=== PATIENT | male | born 1930 | race Caucasian/White ===

== ENCOUNTER 2017-03-07 14:19 | Inpatient (IN) | payer OTHER ==
[~2017-03-07] VITALS: Ht 167.6 cm; Wt 64.0 kg
[~2017-03-07 14:19] MED LIST: ASPI-1063 PO; BIMA2.5D5 OP; BISA-79 PO; DILT120C89 PO; LIP20 PO; PILO15DR35 OP; PROP10TA10 PO; PSYL3.4P6 PO; SIMV40TA2 PO; TIMO5DRO16 OP; [UNRECOGNIZED DRUG - OTHER] OP
[2017-03-07 14:43] VITALS: BP 109/81; PULSE 74; RESP 17; TEMP 97.6; O2SAT 95
--- NOTE | 2017-03-07 14:50 | NUR ---
Pt presents with constipation and abd pain 5/10. Abd is soft and distended. Pt reports taking 2 enemas at home with one sm bowel movement last night. Denies taking pain medication or iron regularly. reports eating his usual high fiber breakfast today with no decreased/loss of appetite. Bowel sounds x4 hypoactive. hx of SBO sx x2. pt reports inability to pass gas. pt is burping. No acute distress.
--- NOTE | 2017-03-07 14:50 | NUR ---
ER at bedside examining patient.
[2017-03-07] MEDS ORDERED: NACL 0.9% 1,000 ML IV ONE (15:00)
[2017-03-07 15:25] LABS: BASOPHILS % (AUTO) 0.2 % (0.0-2.0); EOSINOPHILS # (AUTO) 0.2 K/uL (0.0-0.4); EOSINOPHILS % (AUTO) 2.3 % (0.0-4.0); HEMATOCRIT 39.3 % (36-54); LYMPHOCYTES # (AUTO) 0.5 K/uL (1.0-5.5); LYMPHOCYTES % (AUTO) 7.3 % (20.5-51.5); MEAN CORPUSCULAR HEMOGLOBIN 30 pg (27-31); MEAN CORPUSCULAR HGB CONC 33 % (32-36); MEAN CORPUSCULAR VOLUME 90 fL (79.0-98.0); MONOCYTES # (AUTO) 0.4 K/uL (0.0-1.0); MONOCYTES % (AUTO) 5.5 % (1.7-9.3); NEUTROPHILS # (AUTO) 5.9 K/uL (1.8-7.7); NEUTROPHILS % (AUTO) 84.7 % (40.0-70.0); PLATELET COUNT (AUTO) 201 K/uL (130-430); RED BLOOD CELL COUNT(AUTO) 4.39 MIL/uL (4.2-6.2); RED CELL DISTRIBUTION WIDTH 13.8 % (9.0-15.0)
[2017-03-07 15:28] LABS: ANION GAP 5 (5-15); CALCIUM 8.5 mg/dL (8.4-11.0); CHLORIDE 105 mmol/L (98-107); CREATININE 1.36 mg/dL (0.55-1.30); GLUCOSE 145 mg/dL (70-99); POTASSIUM 4.1 mmol/L (3.5-5.1); SODIUM SERUM 136 mmol/L (136-145); UREA NITROGEN, BLOOD 27 mg/dL (8-21)
[2017-03-07 15:33] LABS: ALANINE AMINOTRANSFERASE 61 U/L (12-78); ALBUMIN 3.3 g/dL (3.4-4.8); AMYLASE 59 U/L (0-100); ASPARTATE AMINOTRANSFERASE 33 U/L (10-37); LIPASE 176 U/L (73-393); TOTAL BILIRUBIN 0.6 mg/dL (0.0-1.0); TOTAL PROTEIN, SERUM 6.8 g/dL (6.4-8.3)
--- NOTE | 2017-03-07 16:07 | NUR ---
Medication reconciliation completed with information provided by patient. Any prior medication reconciliation on file was reviewed and corrected.
[2017-03-07] MEDS ORDERED: ONDANSETRON HCL 4 MG/2 ML VIAL IVP PRN (16:15)
--- NOTE | 2017-03-07 16:38 | NUR ---
Patient will be admitted to care of . Admitted to Med surg unit. Will go to room 109a. Belongings list completed. Summary report printed. Report given to Laura OKEEFE.
--- NOTE | 2017-03-07 16:47 | NUR ---
ADMISSION NOTE Received patient from ER via gurney. Patient admitted with diagnosis of Small Bowel Obstruction . Patient is awake, alert, oriented X 4. Patient oriented to hospital room, call light, toileting, pain management and safety-teach back done. Patient informed that Laura will be RN nurse and that their room number is 109A. Personal belongings checked and Belongings List documented. Call light within reach.
[2017-03-07 16:51] VITALS: BP 154/68; PULSE 67; RESP 18; TEMP 97.7; O2SAT 96
[2017-03-07] MEDS: D5/0.45 NS 1,000 ML IV SCH (17:07)
[2017-03-07] MEDS: MORPHINE 2 MG/ML INJ. SYRINGE IVP PRN (17:08)
[2017-03-07] MEDS ORDERED: GASTROGRAFIN 120 ML ONE (18:04)
--- NOTE | 2017-03-07 18:30 | NUR ---
CLOSING NOTE: PATIENT IS RESTING COMFORTABLY IN BED. NO S/S OF DISTRESS OR SOB. PATIENT IS ALERT AND ORIENTED, ABLE TO EXPRESS NEEDS, AND ASK FOR ASSISTANCE. NG TUBE WAS PLACED. SMALL BOWEL FOLLOW THROUGH WAS STARTED. CALL LIGHT IN REACH, BED IN LOWEST POSITION, AND WILL GIVE REPORT TO NIGHT NURSE.
[2017-03-07 19:45] VITALS: BP 125/65; PULSE 72; RESP 20; TEMP 98; O2SAT 96
[2017-03-07] MEDS: METOCLOPRAMIDE HCL 10 MG/2 ML VIAL IVP PRN (20:16)
--- NOTE | 2017-03-07 20:30 | NUR ---
Initial note and MD rounds A/O x 3, no SOB, no chest pain, denied pain at this time. C/o Nauseated and vomiting x 1, brown vomitus noted on the chux. Partial bed bath given, linen changed. aware of increased N/V and gave order of Regland and Zofran PRN. NGT in place through R nares. Skin warm to touch, IV at L FA, patent and free of infection or infiltration. One open wound at mid ABD, red/pink wound bed, scant red/brown drainage on old gauze. Soft but distended ABD with active bowel sounds. +2 radial and pedal pulses. No edema noted. Bed at lowest position, bed alarm on, call light within reach, will continue to monitor patient.
--- NOTE | 2017-03-07 20:32 | NUR ---
Consultation Paged Reason for consultation: Small Bowel Obstruction Was consult called: Yes Person who was notified: Jana (exchange) Consulting Physician: Kendall Paiz; Patricio Jara is on-call Exchange also notified Dr Sanches regarding consult Circulation Analyst Specialty: Bicycle Assembler Ordered by:
[2017-03-07] MEDS: ONDANSETRON HCL 4 MG/2 ML VIAL IVP PRN (21:40)
[2017-03-07] MEDS ORDERED: LIP20 PO (21:59)
[2017-03-07] MEDS ORDERED: DORZ10DR10 OP (21:59)
--- NOTE | 2017-03-07 22:00 | NUR ---
Rounds Patient resting in bed. No SOB, no chest pain, denied pain at this time. Still nauseated after Reglan and Zofran given. NGT in place through R nares. IV at L FA, patent and free of infection or infiltration. One open wound at mid ABD, covered by gauze/tape. Soft but distended ABD with active bowel sounds. Patient/family is aware that next SBFT will be around 2230, needed to keep patient NPO and no nasal suction at this time. Bed at lowest position, bed alarm on, call light within reach, will continue to monitor patient.
--- NOTE | 2017-03-07 23:15 | NUR ---
Vomiting x 2 Per , patient vomiting about 150 ml brown around 2214, she dumped it without informing SN. Before SBFT, patient vomited again, about 200 ml brown vomitus. Patient/family aware that Reglan and Zofran were given and needed to wait until further result before start nasal suction. Partial bed bath given, changed linen.
[2017-03-08] VITALS: BP 135/66; PULSE 91; RESP 16; TEMP 98.2; O2SAT 95
--- NOTE | 2017-03-08 00:15 | NUR ---
Rounds Resting in bed. No SOB, no chest pain, no grimacing. NGT in place through R nares. IV at L FA, patent and free of infection or infiltration. Bed at lowest position, bed alarm on, call light within reach, will continue to monitor patient.
--- NOTE | 2017-03-08 02:05 | NUR ---
Rounds and Vomiting x 1 Resting in bed. Vomiting x 1 about 100 ml brown/green vomitus. No SOB, no chest pain, denied pain. NGT in place through R nares. Spoke to [facility] (radiology department) that they will do another picture/SBFT around 0700 and may start nasal suction due to patient vomiting couple times already. IV at L FA, patent and free of infection or infiltration. Bed at lowest position, bed alarm on, call light within reach, will continue to monitor patient.
[2017-03-08] MEDS: METOCLOPRAMIDE HCL 10 MG/2 ML VIAL IVP PRN ×2 (02:35→08:15)
[2017-03-08] MEDS: D5/0.45 NS 1,000 ML IV SCH ×2 (02:39→13:05)
[2017-03-08 04:00] VITALS: BP 152/76; PULSE 106; RESP 16; TEMP 98.4; O2SAT 92
--- NOTE | 2017-03-08 04:05 | NUR ---
Rounds Resting/sleeping in bed. No Vomiting after Reglan given. No SOB, no chest pain, no grimacing. NGT in place through R nares. NGT suction connected to patient, but setting is off. In the past 2 hours, about 200 ml suctioned. IV at L FA, patent and free of infection or infiltration. Bed at lowest position, bed alarm on, call light within reach, will continue to monitor patient.
[2017-03-08] MEDS: ONDANSETRON HCL 4 MG/2 ML VIAL IVP PRN (05:49)
--- NOTE | 2017-03-08 06:00 | NUR ---
Rounds Resting in bed. C/o nauseated, Zofran given. No SOB, no chest pain, c/o mild pain at ABD 3/10, refused pain medication. NGT in place through R nares. NGT suction connected to patient with setting low suction. IV at L FA, patent and free of infection or infiltration. Bed at lowest position, bed alarm on, call light within reach, will continue to monitor patient.
--- NOTE | 2017-03-08 06:58 | NUR ---
Closing note Resting in bed. No SOB, no chest pain, no grimacing. NGT in place through R nares. NGT suction connected to patient and setting is off. Total 400 ml by nasal suction. IV at L FA, patent and free of infection or infiltration. Bed at lowest position, bed alarm on, call light within reach, will give report to incoming nurse for patient condition and follow up for BP, DVT, and wound care.
--- NOTE | 2017-03-08 07:38 | NUR ---
PATIENT IS AT REST, A/OX4, BUT C/O NAUSEA. NPO AT THIS TIME. IV ON LEFT FA, #20, D5 1/2 NS 100ML/HR. NG TUBE IS IN PLACE. CALL LIGHT IN PLACE, BED AT LOWEST POSITION, WILL CONTINUE TO MONITOR CLOSELY.
[2017-03-08] MEDS ORDERED: hydrALAZINE HCL 20 MG/ML VIAL IVP PRN (08:15)
[2017-03-08] MEDS: PANTOPRAZOLE SODIUM 40 MG/VIAL (PROTONIX) IVP SCH (08:26)
[2017-03-08] MEDS: HEPARIN SODIUM,PORCINE 5000 UNITS/ML VIAL SUBCUT SCH ×2 (08:28→21:50)
[2017-03-08 08:49] LABS: BASOPHILS # (AUTO) 0.1 K/uL (0.0-0.2); BASOPHILS % (AUTO) 0.7 % (0.0-2.0); EOSINOPHILS % (AUTO) 0.3 % (0.0-4.0); HEMATOCRIT 44.3 % (36-54); HEMOGLOBIN 14.4 g/dL (14.0-18.0); LYMPHOCYTES # (AUTO) 0.7 K/uL (1.0-5.5); LYMPHOCYTES % (AUTO) 7.9 % (20.5-51.5); MEAN CORPUSCULAR HEMOGLOBIN 29 pg (27-31); MEAN CORPUSCULAR HGB CONC 33 % (32-36); MEAN CORPUSCULAR VOLUME 90 fL (79.0-98.0); MONOCYTES # (AUTO) 0.9 K/uL (0.0-1.0); MONOCYTES % (AUTO) 10.5 % (1.7-9.3); NEUTROPHILS # (AUTO) 6.8 K/uL (1.8-7.7); NEUTROPHILS % (AUTO) 80.6 % (40.0-70.0); PLATELET COUNT (AUTO) 210 K/uL (130-430); RED BLOOD CELL COUNT(AUTO) 4.93 MIL/uL (4.2-6.2); WHITE BLOOD COUNT (AUTO) 8.5 K/uL (4.8-10.8)
[2017-03-08 08:55] LABS: ANION GAP 8 (5-15); CALCIUM 9.2 mg/dL (8.4-11.0); CHLORIDE 104 mmol/L (98-107); CREATININE 1.61 mg/dL (0.55-1.30); GLUCOSE 165 mg/dL (70-99); PHOSPHORUS 3.4 mg/dL (2.7-4.5); POTASSIUM 3.7 mmol/L (3.5-5.1); SODIUM SERUM 139 mmol/L (136-145); UREA NITROGEN, BLOOD 24 mg/dL (8-21)
[2017-03-08] MEDS: SODIUM CHLORIDE 5% OP SCH ×3 (09:00→21:00)
[2017-03-08] MEDS: [UNRECOGNIZED DRUG - OTHER] OP SCH ×3 (09:00→21:00)
[2017-03-08] MEDS: DORZOLAMIDE HCL/TIMOLOL MAL. 10 ML EYE DROPS (COSOPT) OP SCH ×2 (09:00→21:00)
[2017-03-08] MEDS: PILOCARPINE 1% OPHTHALMIC DROPS (ISOPTO CARPINE) OP SCH ×3 (09:00→21:00)
--- NOTE | 2017-03-08 10:00 | NUR ---
PATIENT IS RESTING, INTERMITTENT SUCTION OF NG TUBE MAINTAINED.
[2017-03-08] MEDS: PIPERACILLIN/TAZO 3.375/DEX-IS 50 ML IV SCH ×4 (10:05→23:40)
[2017-03-08 12:00] VITALS: BP 124/61; PULSE 82; RESP 16; TEMP 97; O2SAT 92
--- NOTE | 2017-03-08 12:20 | NUR ---
PATIENT AT REST, NO SIGNS OF DISTRESS NOTED.
[2017-03-08] MEDS: DILTIAZEM HCL 120 MG CAP.SR.24H PO SCH (13:03)
[2017-03-08] MEDS: PROPRANOLOL HCL 10 MG TABLET (INDERAL) PO SCH (13:03)
[2017-03-08] MEDS: ASPIRIN 81 MG TABLET(ECOTRIN) PO SCH (13:04)
--- NOTE | 2017-03-08 14:50 | NUR ---
DR. TYLER IS WITH PATIENT'S FAMILY MEMBER TO DISCUSS THE TREATMENT PLAN.
--- NOTE | 2017-03-08 16:25 | NUR ---
DR. ROCKWELL ASSESSED PATIENT, DISCUSSED WITH PATIENT'S FAMILY ABOUT PATIENT'S CLINICAL STATUS
[2017-03-08 18:08] VITALS: BP 139/88; PULSE 89; RESP 18; TEMP 98.9; O2SAT 94
--- NOTE | 2017-03-08 18:20 | NUR ---
IV RESTARTED ON LEFT AC,#20, INTACT AND PATENT. NO SIGNS OF DISTRESS NOTED.
[2017-03-08 19:55] VITALS: BP 143/70; PULSE 97; RESP 20; TEMP 97.6; O2SAT 96
--- NOTE | 2017-03-08 20:00 | NUR ---
NOTES; SEEN PT IN BED, RESTING. EASILY AROUSED. ORIENTED TO NAME, PLACE TIME, AND SURROUNDING. NO ACUTE DISTRESS NOTED. VITAL SIGNS STABLE, AFEBRILE. ABDOMEN SOFT NONDISTENDED WITH HYPERACTIVE BOWEL SOUNDS. SMALL WOUND TO THE ABD WITH DRESSING CLEAN, DRY, AND INTACT. NG-TUBE TO RT NARE, TO LOW INTERMITTENT SUCTIONING. NG-TUBE DRAINING GREEN GASTRIC SECRETION. PT DID NOT VOID FOR URIN CULTURE SPECIMEN. PER MD ORDER, WILL INSERT COOK CATHETER AFTER VOID. DENIES ANY PAIN AT THIS TIME. INSTRUCTED PT ON THE USE OF CALL LIGHT. PT DEMONSTRATED UNDERSTANDING. BED LOCKED AND IN LOW POSITION, SIDE RAILS UP X3. CALL LIGHT WITHIN REACH. FAMILY AT BEDSIDE WITH GOOD SUPPORT.
[2017-03-08] MEDS ORDERED: BIMATOPROST 0.01%, 2.5 ML EYE DROPS OP SCH (21:00)
[2017-03-08] MEDS: ATORVASTATIN 20 MG TABLET PO SCH (21:00)
--- NOTE | 2017-03-08 21:00 | NUR ---
NOTES; BED BATH GIVEN, LINEN CHANGED. DENIES ANY NAUSEA,VOMITING OR PAIN. SAFETY MEASURES IN PROGRESS. SON AT BEDSIDE WITH GOOD SUPPORT.
[2017-03-08] MEDS: LATANOPROST 2.5 ML DROPS (XALATAN) OP SCH (21:48)
--- NOTE | 2017-03-08 22:13 | NUR ---
NOTES; PT ONLY TOOK XALATAN EYE DROPS. PT REFUSED THE REST OF THE SCHEDULED EYE DROPS. PT STATED" MY ALREADY GAVE ME ALL MY EYE DROPS EXCEPT XALATAN SO I WILL NOT TAKE THE REST OF THE EYE DROPS EXCEPT XALATAN" INFORMED PT NO TO TAKE MEDS FROM HOME WITHOUT DOCTORS APPROVAL. PT VERBALIZED UNDERSTANDING. CHARGE NURSE NOTIFIED..
--- NOTE | 2017-03-09 | NUR ---
NOTES; PT VOIDED, URINE SAMPLE COLLECTED. INDWELLING COOK CATHETER INSERTED WITH 175 URINE OUT PUT NOTED IN BAG. WILL LEAVE CATHETER PER MD ORDER IF URINE OUT PUT IS GREATER THAN 150. WILL CONTINUE TO MONITOR.
[2017-03-09 00:12] VITALS: BP 123/70; PULSE 81; RESP 16; TEMP 98.6; O2SAT 96
--- NOTE | 2017-03-09 02:00 | NUR ---
NOTES; PT APPEARED TO BE SLEEPING, EYES CLOSED. RESPIRATION EVEN AND UNLABORED. NO ACUTE DISTRESS NOTED. FAMILY AT BEDSIDE WITH GOOD SUPPORT. SAFETY MEASURES IN PROGRESS.
[2017-03-09] MEDS: D5/0.45 NS 1,000 ML IV SCH (02:31)
[2017-03-09 03:09] LABS: BILIRUBIN,URINE NEGATIVE (NEGATIVE); CLARITY/URINE CLEAR (CLEAR); COLOR,URINE YELLOW (YELLOW); GLUCOSE,URINE NEGATIVE (NEGATIVE); KETONES,URINE TRACE (NEGATIVE); LEUKOCYTE ESTERASE ,URINE NEGATIVE (NEGATIVE); NITRITE, URINE NEGATIVE (NEGATIVE); PROTEIN URINE 1+ (NEGATIVE); UROBILINOGEN,URINE 0.2 (0.2-1.0)
[2017-03-09 03:33] LABS: BLOOD, URINE TRACE (NEGATIVE)
[2017-03-09 03:55] LABS: BACTERIA,URINE RARE /HPF (None Seen); FINE GRANULAR CASTS,URINE 0-10 /LPF (None Seen); URINE AMORPHOUS URATE 1+ /HPF (None Seen); WBC,URINE 0-3 /HPF (0-3)
[2017-03-09] MEDS: ONDANSETRON HCL 4 MG/2 ML VIAL IVP PRN (04:01)
--- NOTE | 2017-03-09 04:14 | NUR ---
NOTES; ZOFRAN 4MG IV ADMINISTERED BY RN COVERING FOR NAUSEA. PT TOLERATED MEDS WELL.
--- NOTE | 2017-03-09 04:35 | NUR ---
NOTES; PT STATED EFFECTIVE NAUSEA MEDICATION, AND RELIEF. WILL CONTINUE TO MONITOR.
[2017-03-09 05:07] VITALS: BP 112/78; PULSE 65; RESP 18; TEMP 97.9; O2SAT 96
--- NOTE | 2017-03-09 05:45 | NUR ---
Paged paged for , dialed . s/w Kaycee. Dr Villegas is on-call for .
[2017-03-09] MEDS: PIPERACILLIN/TAZO 3.375/DEX-IS 50 ML IV SCH ×3 (05:48→17:47)
--- NOTE | 2017-03-09 05:56 | NUR ---
NOTES; DR. GOLD AUTO BUMPER MECHANIC FOR [facility] CALLED BACK. INFORMED MD THAT PT HAS NO URINE OUT PUT AFTER THE INITIAL OUTPUT. NEW ORDER OF NS 250ML BOLUS NOW AND LEAVE COOK CATHETER IN . MD WILL SEE PT THIS MORNING. CHARGE NURSE AND RN COVERING NOTIFIED.
[2017-03-09] MEDS ORDERED: NS 250 ML IV ONE (06:00)
--- NOTE | 2017-03-09 06:14 | NUR ---
NOTES; BLADDER SCANNER USED AND FOUND TO VOLUME OF 427. NS BOLUS ADMINISTERED PER MD ORDER AND INFUSING WELL. WILL CONTINUE TO MONITOR.
--- NOTE | 2017-03-09 06:49 | NUR ---
NOTES; COOK CATHETER ADVANCED AND DRAINING AT THIS TIME. 250ML OUT PUT, URINE WITH A TINGE OF BLOOD. COOK CATHETER SECUREMENT IN PLACE. WILL CONTINUE TO MONITOR COOK CATHETER AND NG-TUBE OUT PUT.
[2017-03-09 07:21] LABS: HEMATOCRIT 38.6 % (36-54); HEMOGLOBIN 12.9 g/dL (14.0-18.0); MEAN CORPUSCULAR HEMOGLOBIN 30 pg (27-31); MEAN CORPUSCULAR HGB CONC 33 % (32-36); MEAN CORPUSCULAR VOLUME 89 fL (79.0-98.0); PLATELET COUNT (AUTO) 176 K/uL (130-430); RED BLOOD CELL COUNT(AUTO) 4.34 MIL/uL (4.2-6.2); RED CELL DISTRIBUTION WIDTH 13.9 % (9.0-15.0); WHITE BLOOD COUNT (AUTO) 4.6 K/uL (4.8-10.8)
--- NOTE | 2017-03-09 07:30 | NUR ---
Initial notes: pt on bed awake, alert and oriented. NGT tube with suction in placed. I.V. access patent. lozada cath draining 25cc with blood in urine. Discussed plan of care. Call light within reach. Report received at bedside.
[2017-03-09 07:33] LABS: ANION GAP 8 (5-15); CALCIUM 8.5 mg/dL (8.4-11.0); CHLORIDE 101 mmol/L (98-107); CREATININE 1.83 mg/dL (0.55-1.30); GLUCOSE 118 mg/dL (70-99); POTASSIUM 3.5 mmol/L (3.5-5.1); SODIUM SERUM 138 mmol/L (136-145); UREA NITROGEN, BLOOD 32 mg/dL (8-21)
[2017-03-09 08:00] VITALS: BP 112/60; PULSE 88; RESP 14; TEMP 96.9; O2SAT 93
[2017-03-09] MEDS: PANTOPRAZOLE SODIUM 40 MG/VIAL (PROTONIX) IVP SCH (08:23)
[2017-03-09] MEDS: DORZOLAMIDE HCL/TIMOLOL MAL. 10 ML EYE DROPS (COSOPT) OP SCH ×2 (08:26→22:20)
[2017-03-09] MEDS: [UNRECOGNIZED DRUG - OTHER] OP SCH ×3 (08:26→21:00)
[2017-03-09] MEDS: SODIUM CHLORIDE 5% OP SCH ×3 (08:26→21:00)
[2017-03-09] MEDS: PILOCARPINE 1% OPHTHALMIC DROPS (ISOPTO CARPINE) OP SCH ×3 (08:32→22:20)
[2017-03-09] MEDS: HEPARIN SODIUM,PORCINE 5000 UNITS/ML VIAL SUBCUT SCH ×2 (08:37→22:16)
[2017-03-09] MEDS: DILTIAZEM HCL 120 MG CAP.SR.24H PO SCH (09:00)
[2017-03-09] MEDS: PROPRANOLOL HCL 10 MG TABLET (INDERAL) PO SCH (09:00)
[2017-03-09] MEDS: ASPIRIN 81 MG TABLET(ECOTRIN) PO SCH (09:00)
[2017-03-09 11:38] LABS: ATYPICAL LYMPHOCYTES % 3 % (0-0); BAND % (MANUAL) 44 % (0-6); BASOPHILS % (MANUAL) 0 % (0-2); EOSINOPHILS % (MANUAL) 2 % (0-7); LYMPHOCYTES % (MANUAL) 18 % (20-46); MONOCYTES % (MANUAL) 11 % (0-11)
--- NOTE | 2017-03-09 11:58 | NUR ---
Wound dressing: abdominal wound dressing changed. wound healing well. no redness.
[2017-03-09 12:49] VITALS: BP 117/60; PULSE 76; RESP 16; TEMP 97.6; O2SAT 95
--- NOTE | 2017-03-09 15:30 | NUR ---
CXR and lab test: CXR and lab test done. result pending.
--- NOTE | 2017-03-09 16:00 | NUR ---
rounds: pt sleeping. no distress noted.
--- NOTE | 2017-03-09 16:53 | NUR ---
rounds: pt resting . no distress noted. daughter at bedside.
[2017-03-09] MEDS: KCL 10 mEq in D5/0.45NS 1000mL 1,000 ML IV SCH (16:59)
[2017-03-09 17:18] VITALS: BP 122/57; PULSE 76; RESP 16; TEMP 98; O2SAT 95
--- NOTE | 2017-03-09 18:45 | NUR ---
closing notes: pt on bed sleeping. no distress noted. needs attended. at bedside. call light within reach. report will be given to manager night nurse.
[2017-03-09 20:10] VITALS: BP 124/54; PULSE 73; RESP 16; TEMP 98; O2SAT 94
[2017-03-09] MEDS: ATORVASTATIN 20 MG TABLET PO SCH (22:14)
[2017-03-09] MEDS: LATANOPROST 2.5 ML DROPS (XALATAN) OP SCH (22:20)
--- NOTE | 2017-03-10 00:43 | NUR ---
ROUNDS PATIENT IS SLEEPING COMFORTABLY WITH VISIBLE RISE AND FALL OF CHEST NOTED. NO SIGNS OR SYMPTOMS OF ACUTE DISTRESS NOTED. IV PATENT AND INFUSING. NG TUBE ON INTERMITTENT SUCTION. BED IN LOWEST POSITION, BED ALARM ON, CALL LIGHT WITHIN REACH. WILL CONTINUE TO MONITOR.
[2017-03-10] MEDS: PIPERACILLIN/TAZO 3.375/DEX-IS 50 ML IV SCH ×5 (00:53→23:36)
[2017-03-10 01:33] VITALS: BP 137/65; PULSE 77; RESP 19; TEMP 98.5; O2SAT 96
[2017-03-10] MEDS: KCL 10 mEq in D5/0.45NS 1000mL 1,000 ML IV SCH ×4 (01:40→22:41)
--- NOTE | 2017-03-10 03:42 | NUR ---
ROUNDS PATIENT IS SLEEPING COMFORTABLY WITH VISIBLE RISE AND FALL OF CHEST NOTED. NO SIGNS OR SYMPTOMS OF ACUTE DISTRESS NOTED. IV PATENT AND INFUSING. BED IN LOWEST POSITION, BED ALARM ON, CALL LIGHT WITHIN REACH. WILL CONTINUE TO MONITOR.
[2017-03-10 04:00] VITALS: BP 143/72; PULSE 72; RESP 18; TEMP 98.6; O2SAT 97
--- NOTE | 2017-03-10 05:38 | NUR ---
ROUNDS PATIENT IS AWAKE AND ALERT COMPLAINING OF A SORE THROAT, WILL ENDORSE TO DAYSHIFT NURSE. PATIENT SHOWS NO S/S OF DISTRESS. BED IN LOWEST POSITION, BED ALARM ON, CALL LIGHT WITHIN REACH.
[2017-03-10 07:39] LABS: BASOPHILS % (AUTO) 0.6 % (0.0-2.0); EOSINOPHILS # (AUTO) 0.4 K/uL (0.0-0.4); HEMATOCRIT 34.4 % (36-54); HEMOGLOBIN 11.9 g/dL (14.0-18.0); LYMPHOCYTES # (AUTO) 0.7 K/uL (1.0-5.5); MEAN CORPUSCULAR HEMOGLOBIN 31 pg (27-31); MEAN CORPUSCULAR HGB CONC 35 % (32-36); MEAN CORPUSCULAR VOLUME 89 fL (79.0-98.0); MONOCYTES # (AUTO) 0.5 K/uL (0.0-1.0); MONOCYTES % (AUTO) 10.9 % (1.7-9.3); NEUTROPHILS # (AUTO) 2.6 K/uL (1.8-7.7); NEUTROPHILS % (AUTO) 63.5 % (40.0-70.0); PLATELET COUNT (AUTO) 139 K/uL (130-430); RED BLOOD CELL COUNT(AUTO) 3.88 MIL/uL (4.2-6.2); RED CELL DISTRIBUTION WIDTH 13.8 % (9.0-15.0); WHITE BLOOD COUNT (AUTO) 4.2 K/uL (4.8-10.8)
--- NOTE | 2017-03-10 07:55 | NUR ---
CLOSING NOTES REPORT GIVEN AT BEDSIDE WITH AT BEDSIDE. PATIENT IS SITTING UP, RESTING COMFORTABLY, DENIES PAIN OR NAUSEA. NO SIGNS OR SYMPTOMS OF ACUTE DISTRESS NOTED. IV PATENT AND INFUSING. NG TUBE ON INTERMITTENT SUCTION. BED IN LOWEST POSITION, BED ALARM ON, CALL LIGHT WITHIN REACH.
--- NOTE | 2017-03-10 08:00 | NUR ---
OPENING NOTES PT RESTING IN BED, FAMILY AT BEDSIDE. 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
[2017-03-10 08:15] LABS: ALANINE AMINOTRANSFERASE 30 U/L (12-78); ALBUMIN 2.4 g/dL (3.4-4.8); ANION GAP 6 (5-15); ASPARTATE AMINOTRANSFERASE 17 U/L (10-37); CALCIUM 8.2 mg/dL (8.4-11.0); CHLORIDE 102 mmol/L (98-107); CREATININE 1.46 mg/dL (0.55-1.30); GLUCOSE 124 mg/dL (70-99); POTASSIUM 3.4 mmol/L (3.5-5.1); SODIUM SERUM 136 mmol/L (136-145); TOTAL BILIRUBIN 0.7 mg/dL (0.0-1.0); UREA NITROGEN, BLOOD 21 mg/dL (8-21)
[2017-03-10 08:41] VITALS: BP 137/72; PULSE 74; RESP 18; TEMP 98.2; O2SAT 96
[2017-03-10] MEDS: [UNRECOGNIZED DRUG - OTHER] OP SCH ×3 (09:00→20:56)
[2017-03-10] MEDS: SODIUM CHLORIDE 5% OP SCH ×3 (09:00→20:56)
--- NOTE | 2017-03-10 09:00 | NUR ---
BILLY BANDAGE APPLIED TO PT LEFT WRIST, PER HIS REQUEST. PT COMPLAINING OF CHRONIC PAIN RELATED TO A WRIST FRACTURE OVER 20 YEARS AGO. OFFERED PRN MEDICATION AND WILL MONITOR FOR S/S OF PAIN
--- NOTE | 2017-03-10 09:35 | NUR ---
Nutrition Update Ck Scale 13 noted. Pt admitted for SBO. Diet: NPO BMI: 22.6 kg/m2 RD to follow per nutrition care standards.
[2017-03-10] MEDS: MORPHINE 2 MG/ML INJ. SYRINGE IVP PRN (09:48)
[2017-03-10] MEDS: PANTOPRAZOLE SODIUM 40 MG/VIAL (PROTONIX) IVP SCH (09:54)
[2017-03-10] MEDS: HEPARIN SODIUM,PORCINE 5000 UNITS/ML VIAL SUBCUT SCH ×2 (09:56→21:03)
[2017-03-10] MEDS: ASPIRIN 81 MG TABLET(ECOTRIN) PO SCH (09:57)
[2017-03-10] MEDS: PROPRANOLOL HCL 10 MG TABLET (INDERAL) PO SCH (09:57)
[2017-03-10] MEDS: DILTIAZEM HCL 120 MG CAP.SR.24H PO SCH (09:57)
--- NOTE | 2017-03-10 10:00 | NUR ---
ROUNDS PT IN BED, SPEAKING TO HIS WHO IS AT BEDSIDE. PT STATED HE IS COMFORTABLE
[2017-03-10] MEDS: DORZOLAMIDE HCL/TIMOLOL MAL. 10 ML EYE DROPS (COSOPT) OP SCH ×2 (10:16→20:56)
[2017-03-10] MEDS: PILOCARPINE 1% OPHTHALMIC DROPS (ISOPTO CARPINE) OP SCH ×3 (10:17→20:56)
--- NOTE | 2017-03-10 11:01 | NUR ---
Called Dr Myron Argueta who was in surgery Informed him that per Dr Coe's progress noted, he, Dr Sanches will continue to follow this patient. He stated he will come see the patient later I asked if ok to administer meds PO and hold the suction for an hour or so. He stated ok to administer.
[2017-03-10] MEDS ORDERED: GASTROGRAFIN 120 ML ONE (11:57)
[2017-03-10] MEDS: ONDANSETRON HCL 4 MG/2 ML VIAL IVP PRN (11:59)
--- NOTE | 2017-03-10 12:10 | NUR ---
PT GIVEN GASTROGRAFIN CONTRAST FOR SMALL BOWEL FOLLOWTHROUGH, THROUGH NG TUBE. PULP BLEACHER AT BEDSIDE, DOING XRAYS
[2017-03-10 12:17] VITALS: BP 146/79; PULSE 60; RESP 16; TEMP 98.3; O2SAT 96
[2017-03-10 12:19] VITALS: Ht 167.6 cm; Wt 64.0 kg
--- NOTE | 2017-03-10 12:25 | NUR ---
Pt laying on the right side per tech's advice and they will take another xray in 30 minutes.
--- NOTE | 2017-03-10 13:27 | NUR ---
ROUNDS/PAIN FOLLOW-UP PT VS ARE STABLE BUT HIS LEFT WRIST IS VERY PAINFUL (10/10) DUE TO AN OLD INJURY. PT IS CONCERNED MORPHINE MAY CONTRAINDICATED DUE TO HIS BOWEL BLOCKAGE, SO I PAGED DR BUTT FOR FURTHER INSTRUCTION
[2017-03-10] MEDS ORDERED: KETOROLAC TROMETHAMINE 30 MG VIAL IVP PRN (13:45)
--- NOTE | 2017-03-10 14:05 | NUR ---
Heating pad initiated , placed on 30 minute intervals around the wrist.
--- NOTE | 2017-03-10 16:00 | NUR ---
ROUNDS PT STATED HE IS COMFORTABLE. STILL AT BEDSIDE
[2017-03-10 16:22] VITALS: BP 137/74; PULSE 79; RESP 16; TEMP 99.6; O2SAT 94
[2017-03-10] MEDS ORDERED: NA PHOS,M-B/NA PHOS,DI-BA 118 ML (FLEET ENEMA) RC ONE ×2 (17:00→18:00)
--- NOTE | 2017-03-10 18:00 | NUR ---
ROUNDS PT TOLD ME HE FEELS LIKE HE NEEDS TO HAVE A BOWEL MOVEMENT. UPON SITTING HIM UP TO ASSIST HIM TO THE BEDSIDE COMMODE, HE HAD A BM IN BED. CLEANED PT, CHANGED BEDDING, AND ASSISTED HIM TO A COMFORTABLE POSITION.
--- NOTE | 2017-03-10 19:00 | NUR ---
CLOSING NOTE PT RESTING IN BED, NO LONGER AT BEDSIDE. REPORT ENDORSED AT BEDSIDE TO MARY, EXPLAINING NG TUBE IS TO BE REMOVED AND PT IS TO RECEIVE 3 ENEMAS ORDERED.
[2017-03-10 20:04] VITALS: BP 113/56; PULSE 74; RESP 18; TEMP 98.9; O2SAT 94
--- NOTE | 2017-03-10 20:10 | NUR ---
Initial note A/O x 3, no SOB, no chest pain, denied pain. Skin warm to touch, IV at L FA, patent, free of infection or infiltration. NGT at R nares with low intermittent suction, light brown drainage in the canister. One small opening at ABD, free of infection, dressing clean and dry. F/C in place, about 50 ml clear yellow urine in the collecting bag. Assisted patient to BSC x 1, semi-liquid BM noted. Patient is aware of order to DC NGT and 2 fleet enema tonight. Bed at lowest position, call light within reach, will continue to monitor patient.
--- NOTE | 2017-03-10 20:30 | NUR ---
DC'd NGT, patient tolerated well
[2017-03-10] MEDS: LATANOPROST 2.5 ML DROPS (XALATAN) OP SCH (20:51)
[2017-03-10] MEDS: ATORVASTATIN 20 MG TABLET PO SCH (21:00)
--- NOTE | 2017-03-10 21:15 | NUR ---
Fleet enema given, patient tolerated well
--- NOTE | 2017-03-10 22:10 | NUR ---
Rounds A/O x 3, no SOB, no chest pain, denied pain. Skin warm to touch, IV at L FA, patent. F/C in place. Patient is aware of 2nd fleet enema will be given later. Bed at lowest position, call light within reach, will continue to monitor patient.
--- NOTE | 2017-03-10 22:40 | NUR ---
2nd Fleet enema given, patient tolerated well Patient requested to be on BSC after fleet enema given, semi-liquid BM noted, assisted patient back to bed, linen, sheet, gown changed.
[2017-03-11] VITALS: BP 114/62; PULSE 58; RESP 16; TEMP 98.7; O2SAT 94
--- NOTE | 2017-03-11 00:10 | NUR ---
Rounds Resting/sleeping in bed. No SOB, no chest pain, no grimacing. IV at L FA, patent. F/C in place. Bed at lowest position, call light within reach, will continue to monitor patient.
[2017-03-11 04:00] VITALS: BP 117/63; PULSE 62; RESP 16; TEMP 97.6; O2SAT 95
[2017-03-11] MEDS: PIPERACILLIN/TAZO 3.375/DEX-IS 50 ML IV SCH ×2 (05:46→12:35)
[2017-03-11] MEDS: KCL 10 mEq in D5/0.45NS 1000mL 1,000 ML IV SCH (06:12)
--- NOTE | 2017-03-11 06:25 | NUR ---
Closing note Sleeping in bed. No SOB, no chest pain, no grimacing. IV at L FA, patent. F/C in place. Bed at lowest position, call light within reach, will give report to incoming nurse.
[2017-03-11 07:19] LABS: BASOPHILS % (AUTO) 0.6 % (0.0-2.0); EOSINOPHILS # (AUTO) 0.2 K/uL (0.0-0.4); EOSINOPHILS % (AUTO) 4.5 % (0.0-4.0); HEMATOCRIT 34.8 % (36-54); HEMOGLOBIN 11.7 g/dL (14.0-18.0); LYMPHOCYTES # (AUTO) 0.7 K/uL (1.0-5.5); LYMPHOCYTES % (AUTO) 16.4 % (20.5-51.5); MEAN CORPUSCULAR HEMOGLOBIN 30 pg (27-31); MEAN CORPUSCULAR HGB CONC 34 % (32-36); MEAN CORPUSCULAR VOLUME 89 fL (79.0-98.0); MONOCYTES # (AUTO) 0.6 K/uL (0.0-1.0); NEUTROPHILS % (AUTO) 65.5 % (40.0-70.0); PLATELET COUNT (AUTO) 125 K/uL (130-430); RED BLOOD CELL COUNT(AUTO) 3.94 MIL/uL (4.2-6.2); RED CELL DISTRIBUTION WIDTH 13.6 % (9.0-15.0); WHITE BLOOD COUNT (AUTO) 4.5 K/uL (4.8-10.8)
[2017-03-11 07:39] LABS: ANION GAP 6 (5-15); CALCIUM 7.8 mg/dL (8.4-11.0); CHLORIDE 105 mmol/L (98-107); CREATININE 1.37 mg/dL (0.55-1.30); GLUCOSE 106 mg/dL (70-99); POTASSIUM 3.1 mmol/L (3.5-5.1); SODIUM SERUM 139 mmol/L (136-145); UREA NITROGEN, BLOOD 17 mg/dL (8-21)
[2017-03-11 08:00] VITALS: BP 133/72; PULSE 84; RESP 17; TEMP 97.3; O2SAT 96
--- NOTE | 2017-03-11 08:00 | NUR ---
opening note pt resting in bed, his is at bedside. vs stable and he said he is not in pain today. discussed d/c planning with patient and his .
[2017-03-11] MEDS ORDERED: NA PHOS,M-B/NA PHOS,DI-BA 118 ML (FLEET ENEMA) RC ONE (09:00)
[2017-03-11] MEDS: SODIUM CHLORIDE 5% OP SCH (09:00)
[2017-03-11] MEDS: [UNRECOGNIZED DRUG - OTHER] OP SCH (09:00)
[2017-03-11] MEDS ORDERED: POTASSIUM CHLORIDE 40 MEQ in 0.45% NS 250 ML IV ONE (10:00)
[2017-03-11] MEDS ORDERED: POTASSIUM CHLORIDE 20 MEQ TAB.PRT.SR PO ONE (10:00)
--- NOTE | 2017-03-11 10:00 | NUR ---
Dr zaid quiñones md notified of the patients potassium levels and also about the dc order from dr Sanches.
[2017-03-11] MEDS: PANTOPRAZOLE SODIUM 40 MG/VIAL (PROTONIX) IVP SCH (10:04)
[2017-03-11] MEDS: ASPIRIN 81 MG TABLET(ECOTRIN) PO SCH (10:05)
[2017-03-11] MEDS: PROPRANOLOL HCL 10 MG TABLET (INDERAL) PO SCH (10:05)
[2017-03-11] MEDS: DILTIAZEM HCL 120 MG CAP.SR.24H PO SCH (10:06)
[2017-03-11] MEDS: DORZOLAMIDE HCL/TIMOLOL MAL. 10 ML EYE DROPS (COSOPT) OP SCH (10:07)
[2017-03-11] MEDS: PILOCARPINE 1% OPHTHALMIC DROPS (ISOPTO CARPINE) OP SCH (10:08)
[2017-03-11] MEDS: HEPARIN SODIUM,PORCINE 5000 UNITS/ML VIAL SUBCUT SCH (10:09)
--- NOTE | 2017-03-11 10:17 | NUR ---
Faxed DC order Home to [phone] Filed fax confirmation in binder.
--- NOTE | 2017-03-11 10:42 | NUR ---
ROUNDS ELIZ COOK, PT AMBULATED TO BATHROOM WITH WALKER
--- NOTE | 2017-03-11 10:52 | NUR ---
enema given third and final enema administered as ordered
--- NOTE | 2017-03-11 12:10 | NUR ---
ROUNDS PT COMPLAINING OF PAIN FROM K+ INFUSION. LOWERED RATE TO TOLERANCE AND OFFERED AN ICE PACK FOR COMFORT. i WILL CHECK BACK IN WITH PT AND INCREASE INFUSION RATE IF TOLERATED
[2017-03-11 12:38] VITALS: BP 128/70; PULSE 54; RESP 12; TEMP 98.1; O2SAT 99
--- NOTE | 2017-03-11 14:00 | NUR ---
ROUNDS PT SLEEPING AND APPEARS COMFORTABLE, STILL AT BEDSIDE
--- NOTE | 2017-03-11 16:00 | NUR ---
ROUNDS IV POTASSIUM STILL INFUSING. PREPARING DISCHARGE SO THAT PT CAN LEAVE SOON INFUSION IS COMPLETE
[2017-03-11 16:38] VITALS: BP 119/67; PULSE 65; RESP 17; TEMP 98.8; O2SAT 97
--- NOTE | 2017-03-11 17:40 | NUR ---
Patient transported out via wheelchair [id number]. Mrs Hernandez to take patient home. Patient steady and stable, all needs met.
--- NOTE | 2017-03-12 15:47 | NUR ---
Discharge Follow Up Phone Call: STONE SANDBLASTER called and spoke with pt ([phone]). Pt states that he is doing well; there are no questions regarding discharge or medication instructions; pt will schedule a follow up appointment with PCP, Dr. Brown. STONE SANDBLASTER offered to assist pt with scheduling appointment, but pt states that he will schedule the appointment. Pt did not express any other needs or concerns and denied the need for additional follow up at this time. No further follow up phone calls required at this time.
== END 2017-03-11 17:30 | disposition home or self-care (01) | DRG 390 ==
LOC: SED 14:19 → SMU 16:08
PROVIDERS: ADMIT Internal Medicine; ATTEND Internal Medicine
DX: K56.7 Ileus, unspecified (principal); K56.60 Unspecified intestinal obstruction; I10 Essential (primary) hypertension; N28.9 Disorder of kidney and ureter, unspecified; E87.6 Hypokalemia; J45.909 Unspecified asthma, uncomplicated; J44.9 Chronic obstructive pulmonary disease, unspecified; I25.10 Atherosclerotic heart disease of native coronary artery without angina pectoris; Z95.5 Presence of coronary angioplasty implant and graft; Z88.6 Allergy status to analgesic agent; Z79.899 Other long term (current) drug therapy; Z79.82 Long term (current) use of aspirin; Z85.9 Personal history of malignant neoplasm, unspecified; Z86.73 Personal history of transient ischemic attack (TIA), and cerebral infarction without residual deficits
CPT/HCPCS: 36415; 71010; 74000-TC; 74250-TC; 80048; 80053; 81000-TC; 82150-TC; 83605; 83690-TC; 83735-TC; 84100-TC; 85007; 85025; 85027; 87040-TC; 87086; 96360; 97116-GP; 99285; C9113; J1644; J1885; J2270; J2405; J2543; J2765; J3480; J7030; J7050; Q9963

== ENCOUNTER 2017-05-30 18:07 | Inpatient (IN) | payer OTHER ==
[~2017-05-30] VITALS: Ht 170.2 cm; Wt 65.3 kg
[2017-05-30 18:07] VITALS: BP_SYST 157
[~2017-05-30 18:07] MED LIST changes: +DORZ10DR10 OP; -SIMV40TA2 PO; -TIMO5DRO16 OP
[2017-05-30] MEDS ORDERED: MORPHINE 4 MG/ML INJ. SYRINGE IVP ONE (18:30)
[2017-05-30] MEDS ORDERED: PIPERACILLIN/TAZO 3.38 GM in NS 50 ML IV ONE (18:30)
[2017-05-30] MEDS ORDERED: DIPHENHYDRAMINE INJ 50 MG/ML VIAL IVP ONE (18:30)
[2017-05-30] MEDS ORDERED: PIPERACILLIN/TAZOBACTAM 3.375 GM/VIAL (ZOSYN) IV ONE ×2 (18:45→22:52)
[2017-05-30 19:11] LABS: BASOPHILS # (AUTO) 0.1 K/uL (0.0-0.2); BASOPHILS % (AUTO) 1.6 % (0.0-2.0); EOSINOPHILS # (AUTO) 0.1 K/uL (0.0-0.4); EOSINOPHILS % (AUTO) 0.7 % (0.0-4.0); HEMATOCRIT 45.5 % (36-54); HEMOGLOBIN 14.7 g/dL (14.0-18.0); LYMPHOCYTES # (AUTO) 0.5 K/uL (1.0-5.5); LYMPHOCYTES % (AUTO) 6.6 % (20.5-51.5); MEAN CORPUSCULAR HEMOGLOBIN 29 pg (27-31); MEAN CORPUSCULAR HGB CONC 32 % (32-36); MEAN CORPUSCULAR VOLUME 89 fL (79.0-98.0); MONOCYTES # (AUTO) 0.3 K/uL (0.0-1.0); MONOCYTES % (AUTO) 3.4 % (1.7-9.3); NEUTROPHILS # (AUTO) 6.4 K/uL (1.8-7.7); NEUTROPHILS % (AUTO) 87.7 % (40.0-70.0); PLATELET COUNT (AUTO) 275 K/uL (130-430); RED BLOOD CELL COUNT(AUTO) 5.12 MIL/uL (4.2-6.2); RED CELL DISTRIBUTION WIDTH 13.9 % (9.0-15.0); WHITE BLOOD COUNT (AUTO) 7.4 K/uL (4.8-10.8)
[2017-05-30 19:22] LABS: INR 0.9 (0.80-1.20); PROTHROMBIN TIME 10.3 SECS (9.5-12.5)
[2017-05-30 19:26] LABS: ANION GAP 9 (5-15); CALCIUM 8.8 mg/dL (8.4-11.0); CHLORIDE 104 mmol/L (98-107); CREATININE 1.18 mg/dL (0.55-1.30); GLUCOSE 156 mg/dL (70-99); POTASSIUM 4.1 mmol/L (3.5-5.1); SODIUM SERUM 135 mmol/L (136-145); UREA NITROGEN, BLOOD 21 mg/dL (8-21)
[2017-05-30 19:31] LABS: ALANINE AMINOTRANSFERASE 38 U/L (12-78); ALBUMIN 3.6 g/dL (3.4-4.8); ASPARTATE AMINOTRANSFERASE 25 U/L (10-37); LIPASE 176 U/L (73-393); TOTAL BILIRUBIN 0.7 mg/dL (0.0-1.0); TOTAL PROTEIN, SERUM 7.6 g/dL (6.4-8.3)
[2017-05-30] MEDS ORDERED: ALBUTEROL SULFATE 0.083% 2.5 MG/3 ML VIAL.NEB INH ONE (20:00)
[2017-05-30] MEDS ORDERED: ALBUTEROL SULFATE 0.083% 2.5 MG/3 ML VIAL.NEB INH PRN (21:00)
[2017-05-30 22:00] VITALS: BP_SYST 113
[2017-05-30 22:14] VITALS: BP_SYST 113
[2017-05-30] MEDS: D5/0.45 NS 1,000 ML IV SCH (22:36)
[2017-05-30 23:00] VITALS: BP_SYST 114
[2017-05-30 23:20] VITALS: BP_SYST 114
[2017-05-30] MEDS: ONDANSETRON HCL 4 MG/2 ML VIAL IVP PRN (23:30)
[2017-05-30] MEDS: IPRATROPIUM BROM 0.5 MG/2.5 ML VIAL.NEB (ATROVENT) INH PRN (23:33)
[2017-05-30] MEDS ORDERED: PANTOPRAZOLE SODIUM 40 MG/VIAL (PROTONIX) IVP ONE (23:45)
[2017-05-30] MEDS ORDERED: PANTOPRAZOLE SODIUM 40 MG/VIAL (PROTONIX) ONE (23:52)
[2017-05-30 23:54] VITALS: BP_SYST 114
[2017-05-31] VITALS (24 sets, daily range): BP systolic 88–120
[2017-05-31] MEDS ORDERED: VANCOMYCIN HCL 1 GM/NS PREMIX 250 ML IV ONE
[2017-05-31] MEDS ORDERED: VANCOMYCIN HCL 1000 MG/VIAL IV ONE (00:06)
[2017-05-31 01:17] LABS: BILIRUBIN,URINE NEGATIVE (NEGATIVE); BLOOD, URINE NEGATIVE (NEGATIVE); CLARITY/URINE HAZY (CLEAR); COLOR,URINE AMBER (YELLOW); GLUCOSE,URINE NEGATIVE (NEGATIVE); KETONES,URINE NEGATIVE (NEGATIVE); LEUKOCYTE ESTERASE ,URINE NEGATIVE (NEGATIVE); NITRITE, URINE NEGATIVE (NEGATIVE); PROTEIN URINE 1+ (NEGATIVE); UROBILINOGEN,URINE 0.2 (0.2-1.0)
[2017-05-31 01:40] LABS: BACTERIA,URINE FEW /HPF (None Seen); HYALINE CASTS, URINE 0-10 /LPF (None Seen); MUCUS,URINE None Seen /LPF (None Seen); RBC,URINE NONE SEEN /HPF (0-3); WBC,URINE 0-3 /HPF (0-3)
[2017-05-31] MEDS: PIPERACILLIN/TAZO 3.375/DEX-IS 50 ML IV SCH ×4 (05:17→17:17)
[2017-05-31 06:42] LABS: LYMPHOCYTES # (AUTO) 0.6 K/uL (1.0-5.5); NEUTROPHILS # (AUTO) 5.1 K/uL (1.8-7.7); RED CELL DISTRIBUTION WIDTH 13.8 % (9.0-15.0)
[2017-05-31 06:55] LABS: ANION GAP 9 (5-15); CALCIUM 8.2 mg/dL (8.4-11.0); CHLORIDE 107 mmol/L (98-107); CREATININE 1.79 mg/dL (0.55-1.30); GLUCOSE 127 mg/dL (70-99); SODIUM SERUM 137 mmol/L (136-145); UREA NITROGEN, BLOOD 30 mg/dL (8-21)
[2017-05-31 07:05] LABS: BASOPHILS % (AUTO) 0.3 % (0.0-2.0); EOSINOPHILS % (AUTO) 0.1 % (0.0-4.0); HEMATOCRIT 36.9 % (36-54); HEMOGLOBIN 12.2 g/dL (14.0-18.0); LYMPHOCYTES % (AUTO) 9.6 % (20.5-51.5); MEAN CORPUSCULAR HEMOGLOBIN 30 pg (27-31); MEAN CORPUSCULAR HGB CONC 33 % (32-36); MEAN CORPUSCULAR VOLUME 90 fL (79.0-98.0); MONOCYTES # (AUTO) 0.3 K/uL (0.0-1.0); MONOCYTES % (AUTO) 5.3 % (1.7-9.3); NEUTROPHILS % (AUTO) 84.7 % (40.0-70.0); PLATELET COUNT (AUTO) 185 K/uL (130-430); RED BLOOD CELL COUNT(AUTO) 4.12 MIL/uL (4.2-6.2)
[2017-05-31 07:54] LABS: BLOOD GAS PH 7.416 (7.350-7.450)
[2017-05-31 07:55] LABS: ABG TOTAL HEMOGLOBIN 13.3 G/dL (12.0-18.0); BLOOD GAS BASE EXCESS -5.2 mmol/L (-3.0-3.0); BLOOD GAS COHb% 0.3 % (0.5-1.5); BLOOD GAS HHB 3.9 % (0.0-6.0); BLOOD O2Hb% 95.1 % (94.0-97.0)
[2017-05-31] MEDS: PANTOPRAZOLE SODIUM 40 MG/VIAL (PROTONIX) IVP SCH (09:08)
[2017-05-31] MEDS: ONDANSETRON HCL 4 MG/2 ML VIAL IVP PRN (09:09)
[2017-05-31] MEDS: D5/0.45 NS 1,000 ML IV SCH (15:22)
[2017-05-31] MEDS ORDERED: GASTROGRAFIN 120 ML ONE (16:03)
[2017-05-31] MEDS: MORPHINE 2 MG/ML INJ. SYRINGE IVP PRN (18:29)
[2017-05-31] MEDS: IPRATROPIUM BROM 0.5 MG/2.5 ML VIAL.NEB (ATROVENT) INH PRN (19:57)
[2017-05-31] MEDS: ALBUTEROL SULFATE 0.083% 2.5 MG/3 ML VIAL.NEB INH SCH (19:57)
[2017-06-01] VITALS (22 sets, daily range): BP systolic 111–155
[2017-06-01] MEDS: MORPHINE 2 MG/ML INJ. SYRINGE IVP PRN ×6 (00:23→23:18)
[2017-06-01] MEDS: PIPERACILLIN/TAZO 3.375/DEX-IS 50 ML IV SCH ×5 (00:29→23:59)
[2017-06-01] MEDS: IPRATROPIUM BROM 0.5 MG/2.5 ML VIAL.NEB (ATROVENT) INH PRN ×3 (00:54→13:33)
[2017-06-01] MEDS: ALBUTEROL SULFATE 0.083% 2.5 MG/3 ML VIAL.NEB INH SCH ×4 (00:54→19:55)
[2017-06-01] MEDS: ONDANSETRON HCL 4 MG/2 ML VIAL IVP PRN ×3 (04:39→23:22)
[2017-06-01] MEDS: D5/0.45 NS 1,000 ML IV SCH ×2 (04:40→18:16)
[2017-06-01] MEDS: PANTOPRAZOLE SODIUM 40 MG/VIAL (PROTONIX) IVP SCH (09:00)
[2017-06-01 16:42] LABS: EOSINOPHILS % (AUTO) 0.6 % (0.0-4.0); HEMATOCRIT 41.3 % (36-54); HEMOGLOBIN 13.5 g/dL (14.0-18.0); LYMPHOCYTES # (AUTO) 0.5 K/uL (1.0-5.5); LYMPHOCYTES % (AUTO) 9.6 % (20.5-51.5); MEAN CORPUSCULAR HEMOGLOBIN 29 pg (27-31); MEAN CORPUSCULAR HGB CONC 33 % (32-36); MEAN CORPUSCULAR VOLUME 89 fL (79.0-98.0); MONOCYTES # (AUTO) 0.3 K/uL (0.0-1.0); MONOCYTES % (AUTO) 6.8 % (1.7-9.3); NEUTROPHILS # (AUTO) 4.1 K/uL (1.8-7.7); PLATELET COUNT (AUTO) 217 K/uL (130-430); RED BLOOD CELL COUNT(AUTO) 4.65 MIL/uL (4.2-6.2); RED CELL DISTRIBUTION WIDTH 14.2 % (9.0-15.0); WHITE BLOOD COUNT (AUTO) 4.9 K/uL (4.8-10.8)
[2017-06-01 16:46] LABS: ANION GAP 7 (5-15); CALCIUM 8.6 mg/dL (8.4-11.0); CHLORIDE 106 mmol/L (98-107); CREATININE 1.74 mg/dL (0.55-1.30); GLUCOSE 134 mg/dL (70-99); POTASSIUM 3.7 mmol/L (3.5-5.1); SODIUM SERUM 139 mmol/L (136-145); UREA NITROGEN, BLOOD 36 mg/dL (8-21)
[2017-06-01 16:50] LABS: ALANINE AMINOTRANSFERASE 23 U/L (12-78); ALBUMIN 2.7 g/dL (3.4-4.8); ASPARTATE AMINOTRANSFERASE 16 U/L (10-37); TOTAL PROTEIN, SERUM 6.9 g/dL (6.4-8.3)
[2017-06-02] VITALS (24 sets, daily range): BP systolic 109–162
[2017-06-02] MEDS: ALBUTEROL SULFATE 0.083% 2.5 MG/3 ML VIAL.NEB INH SCH ×4 (00:54→19:44)
[2017-06-02] MEDS: D5/0.45 NS 1,000 ML IV SCH ×2 (03:14→18:12)
[2017-06-02] MEDS: MORPHINE 2 MG/ML INJ. SYRINGE IVP PRN ×4 (05:03→23:56)
[2017-06-02] MEDS: PIPERACILLIN/TAZO 3.375/DEX-IS 50 ML IV SCH ×4 (06:09→23:55)
[2017-06-02 06:42] LABS: EOSINOPHILS # (AUTO) 0.1 K/uL (0.0-0.4); HEMOGLOBIN 13.3 g/dL (14.0-18.0); LYMPHOCYTES # (AUTO) 0.5 K/uL (1.0-5.5); LYMPHOCYTES % (AUTO) 8.6 % (20.5-51.5); MONOCYTES # (AUTO) 0.5 K/uL (0.0-1.0); NEUTROPHILS # (AUTO) 4.8 K/uL (1.8-7.7); WHITE BLOOD COUNT (AUTO) 5.9 K/uL (4.8-10.8)
[2017-06-02 06:45] LABS: ALANINE AMINOTRANSFERASE 22 U/L (12-78); ALBUMIN 2.7 g/dL (3.4-4.8); ANION GAP 9 (5-15); ASPARTATE AMINOTRANSFERASE 14 U/L (10-37); CALCIUM 8.7 mg/dL (8.4-11.0); CHLORIDE 108 mmol/L (98-107); CREATININE 1.66 mg/dL (0.55-1.30); GLUCOSE 131 mg/dL (70-99); POTASSIUM 3.4 mmol/L (3.5-5.1); SODIUM SERUM 145 mmol/L (136-145); TOTAL BILIRUBIN 0.9 mg/dL (0.0-1.0); TOTAL PROTEIN, SERUM 6.8 g/dL (6.4-8.3); UREA NITROGEN, BLOOD 36 mg/dL (8-21)
[2017-06-02 06:50] LABS: BASOPHILS % (AUTO) 0.5 % (0.0-2.0); MEAN CORPUSCULAR HEMOGLOBIN 29 pg (27-31); MEAN CORPUSCULAR HGB CONC 32 % (32-36); MEAN CORPUSCULAR VOLUME 88 fL (79.0-98.0); NEUTROPHILS % (AUTO) 80.9 % (40.0-70.0); PLATELET COUNT (AUTO) 203 K/uL (130-430); RED BLOOD CELL COUNT(AUTO) 4.64 MIL/uL (4.2-6.2); RED CELL DISTRIBUTION WIDTH 14.1 % (9.0-15.0)
[2017-06-02] MEDS: IPRATROPIUM BROM 0.5 MG/2.5 ML VIAL.NEB (ATROVENT) INH PRN (07:23)
[2017-06-02] MEDS: VANCOMYCIN HCL 750 MG in NS 250 ML IV SCH (08:21)
[2017-06-02] MEDS: PANTOPRAZOLE SODIUM 40 MG/VIAL (PROTONIX) IVP SCH (08:21)
[2017-06-02] MEDS ORDERED: PANTOPRAZOLE SODIUM 40 MG/VIAL (PROTONIX) ONE (08:32)
[2017-06-02] MEDS ORDERED: POTASSIUM CHLORIDE 20 MEQ in NS 250 ML IV ONE (09:45)
[2017-06-02] MEDS ORDERED: LR 1,000 ML IV.SOLN IV ONE (11:27)
[2017-06-02] MEDS ORDERED: METOPROLOL TARTRATE 5 MG/5 ML VIAL IVP ONE (11:27)
[2017-06-02] MEDS ORDERED: SEVOFLURANE 15 MIN GAS INH ONE (11:27)
[2017-06-02] MEDS ORDERED: MIDAZOLAM HCL 5 MG/5 ML VIAL IVP ONE (11:27)
[2017-06-02] MEDS ORDERED: PROPOFOL 200MG/ 20ML VIAL (DIPRIVAN) IV ONE (11:27)
[2017-06-02] MEDS ORDERED: ONDANSETRON HCL 4 MG/2 ML VIAL IVP ONE (11:27)
[2017-06-02] MEDS ORDERED: ROCURONIUM BROMIDE 10 MG/ML (ZEMURON) IV ONE (11:27)
[2017-06-02] MEDS ORDERED: NACL 0.9% 1,000 ML IV SCH (13:59)
[2017-06-02] MEDS ORDERED: ONDANSETRON HCL 4 MG/2 ML VIAL IVP PRN (14:00)
[2017-06-02] MEDS ORDERED: MEPERIDINE HCL/PF 25 MG/ML DISP.SYRIN IVP PRN ×2 (14:00)
[2017-06-02] MEDS ORDERED: POLYMYXIN 500,000/BACIT.10,000 UNITS in NS IRR 1 L IR ONE (14:48)
[2017-06-02 16:47] LABS: ABG TOTAL HEMOGLOBIN 14.5 G/dL (12.0-18.0); BLOOD GAS BASE EXCESS -0.8 mmol/L (-3.0-3.0); BLOOD GAS PH 7.405 (7.350-7.450)
[2017-06-02 16:48] LABS: BLOOD GAS COHb% 0.6 % (0.5-1.5); BLOOD GAS HHB 2.9 % (0.0-6.0); BLOOD O2Hb% 96.1 % (94.0-97.0)
[2017-06-02] MEDS: KETOROLAC TROMETHAMINE 30 MG VIAL IVP SCH (21:05)
[2017-06-03] VITALS (27 sets, daily range): BP systolic 86–134
[2017-06-03] MEDS: ALBUTEROL SULFATE 0.083% 2.5 MG/3 ML VIAL.NEB INH SCH ×3 (00:50→19:22)
[2017-06-03] MEDS ORDERED: NS 250 ML IV ONE (02:30)
[2017-06-03] MEDS: KETOROLAC TROMETHAMINE 30 MG VIAL IVP SCH ×4 (03:38→21:15)
[2017-06-03] MEDS: ONDANSETRON HCL 4 MG/2 ML VIAL IVP PRN (04:11)
[2017-06-03] MEDS: MORPHINE 2 MG/ML INJ. SYRINGE IVP PRN ×3 (04:11→18:11)
[2017-06-03] MEDS: D5/0.45 NS 1,000 ML IV SCH (05:20)
[2017-06-03] MEDS: PIPERACILLIN/TAZO 3.375/DEX-IS 50 ML IV SCH ×3 (05:52→17:45)
[2017-06-03 06:29] LABS: HEMATOCRIT 39.7 % (36-54); HEMOGLOBIN 12.9 g/dL (14.0-18.0); MEAN CORPUSCULAR HEMOGLOBIN 29 pg (27-31); MEAN CORPUSCULAR HGB CONC 32 % (32-36); MEAN CORPUSCULAR VOLUME 89 fL (79.0-98.0); PLATELET COUNT (AUTO) 180 K/uL (130-430); RED BLOOD CELL COUNT(AUTO) 4.45 MIL/uL (4.2-6.2); RED CELL DISTRIBUTION WIDTH 14.2 % (9.0-15.0); WHITE BLOOD COUNT (AUTO) 6.1 K/uL (4.8-10.8)
[2017-06-03 07:00] LABS: ALANINE AMINOTRANSFERASE 32 U/L (12-78); ANION GAP 12 (5-15); ASPARTATE AMINOTRANSFERASE 32 U/L (10-37); CALCIUM 7.8 mg/dL (8.4-11.0); CHLORIDE 111 mmol/L (98-107); GLUCOSE 164 mg/dL (70-99); POTASSIUM 3.7 mmol/L (3.5-5.1); SODIUM SERUM 144 mmol/L (136-145); TOTAL BILIRUBIN 0.9 mg/dL (0.0-1.0); TOTAL PROTEIN, SERUM 5.7 g/dL (6.4-8.3); UREA NITROGEN, BLOOD 47 mg/dL (8-21)
[2017-06-03] MEDS: PANTOPRAZOLE SODIUM 40 MG/VIAL (PROTONIX) IVP SCH (08:29)
[2017-06-03 09:44] LABS: BAND % (MANUAL) 13 % (0-6); BASOPHILS % (MANUAL) 0 % (0-2); EOSINOPHILS % (MANUAL) 0 % (0-7); LYMPHOCYTES % (MANUAL) 7 % (20-46); MONOCYTES % (MANUAL) 9 % (0-11)
[2017-06-03] MEDS ORDERED: D5NS 1,000 ML IV SCH (09:45)
[2017-06-03] MEDS: D5NS 1,000 ML IV SCH ×2 (10:37→20:15)
[2017-06-03 11:49] LABS: BLOOD GAS PH 7.419 (7.350-7.450)
[2017-06-03 11:50] LABS: ABG TOTAL HEMOGLOBIN 12.5 G/dL (12.0-18.0); BLOOD GAS BASE EXCESS -3.4 mmol/L (-3.0-3.0); BLOOD GAS COHb% 0.3 % (0.5-1.5); BLOOD GAS HHB 1.7 % (0.0-6.0); BLOOD O2Hb% 97.5 % (94.0-97.0)
[2017-06-04] VITALS (17 sets, daily range): BP systolic 91–156
[2017-06-04] MEDS: PIPERACILLIN/TAZO 3.375/DEX-IS 50 ML IV SCH ×5 (00:43→23:03)
[2017-06-04] MEDS: ALBUTEROL SULFATE 0.083% 2.5 MG/3 ML VIAL.NEB INH SCH ×4 (00:46→20:32)
[2017-06-04] MEDS: KETOROLAC TROMETHAMINE 30 MG VIAL IVP SCH ×4 (02:49→20:35)
[2017-06-04] MEDS: D5NS 1,000 ML IV SCH ×2 (05:51→18:03)
[2017-06-04 06:58] LABS: BASOPHILS % (AUTO) 0.1 % (0.0-2.0); EOSINOPHILS # (AUTO) 0.2 K/uL (0.0-0.4); EOSINOPHILS % (AUTO) 4.4 % (0.0-4.0); HEMATOCRIT 32.7 % (36-54); HEMOGLOBIN 10.7 g/dL (14.0-18.0); LYMPHOCYTES # (AUTO) 0.4 K/uL (1.0-5.5); LYMPHOCYTES % (AUTO) 8.3 % (20.5-51.5); MEAN CORPUSCULAR HEMOGLOBIN 29 pg (27-31); MEAN CORPUSCULAR HGB CONC 33 % (32-36); MEAN CORPUSCULAR VOLUME 89 fL (79.0-98.0); MONOCYTES # (AUTO) 0.4 K/uL (0.0-1.0); NEUTROPHILS # (AUTO) 4.1 K/uL (1.8-7.7); NEUTROPHILS % (AUTO) 80.2 % (40.0-70.0); PLATELET COUNT (AUTO) 138 K/uL (130-430); RED BLOOD CELL COUNT(AUTO) 3.69 MIL/uL (4.2-6.2); RED CELL DISTRIBUTION WIDTH 14.4 % (9.0-15.0); WHITE BLOOD COUNT (AUTO) 5.1 K/uL (4.8-10.8)
[2017-06-04 07:01] LABS: ALANINE AMINOTRANSFERASE 31 U/L (12-78); ALBUMIN 1.6 g/dL (3.4-4.8); ANION GAP 4 (5-15); ASPARTATE AMINOTRANSFERASE 27 U/L (10-37); CALCIUM 7.6 mg/dL (8.4-11.0); CHLORIDE 117 mmol/L (98-107); CREATININE 2.22 mg/dL (0.55-1.30); GLUCOSE 115 mg/dL (70-99); PHOSPHORUS 3.5 mg/dL (2.7-4.5); SODIUM SERUM 146 mmol/L (136-145); TOTAL BILIRUBIN 0.5 mg/dL (0.0-1.0); TOTAL PROTEIN, SERUM 4.9 g/dL (6.4-8.3); UREA NITROGEN, BLOOD 50 mg/dL (8-21)
[2017-06-04] MEDS: IPRATROPIUM BROM 0.5 MG/2.5 ML VIAL.NEB (ATROVENT) INH PRN ×2 (07:39→13:34)
[2017-06-04] MEDS: VANCOMYCIN HCL 750 MG in NS 250 ML IV SCH (08:56)
[2017-06-04] MEDS: PANTOPRAZOLE SODIUM 40 MG/VIAL (PROTONIX) IVP SCH (08:56)
[2017-06-04] MEDS ORDERED: POTASSIUM CHLORIDE 40 MEQ in NS 250 ML IV ONE (10:00)
[2017-06-04] MEDS ORDERED: *TPN PER PHARMACY XX PRN (10:00)
[2017-06-04 11:09] LABS: PROTHROMBIN TIME 10.8 SECS (9.5-12.5)
[2017-06-04] MEDS ORDERED: METOCLOPRAMIDE HCL 10 MG/2 ML VIAL IVP PRN (14:00)
[2017-06-04] MEDS: FAT EMULSIONS 250 ML IV SCH (17:34)
[2017-06-04] MEDS ORDERED: [UNRECOGNIZED DRUG - OTHER] IV SCH ×10 (18:00)
[2017-06-04] MEDS ORDERED: POTASSIUM CHLORIDE IV SCH ×10 (18:00)
[2017-06-04] MEDS ORDERED: TPN CENTRAL IV SCH ×10 (18:00)
[2017-06-04] MEDS ORDERED: K PHOS IV SCH ×10 (18:00)
[2017-06-04] MEDS ORDERED: SODIUM ACETATE IV SCH ×10 (18:00)
[2017-06-05] VITALS (8 sets, daily range): BP systolic 130–163
[2017-06-05] MEDS: ALBUTEROL SULFATE 0.083% 2.5 MG/3 ML VIAL.NEB INH SCH ×5 (01:39→23:41)
[2017-06-05] MEDS: D5NS 1,000 ML IV SCH ×2 (02:50→14:38)
[2017-06-05] MEDS: KETOROLAC TROMETHAMINE 30 MG VIAL IVP SCH ×4 (02:51→21:42)
[2017-06-05] MEDS: PIPERACILLIN/TAZO 3.375/DEX-IS 50 ML IV SCH ×3 (05:17→17:44)
[2017-06-05 06:39] LABS: ALANINE AMINOTRANSFERASE 34 U/L (12-78); ALBUMIN 1.5 g/dL (3.4-4.8); ANION GAP 6 (5-15); ASPARTATE AMINOTRANSFERASE 24 U/L (10-37); CALCIUM 7.6 mg/dL (8.4-11.0); CREATININE 1.48 mg/dL (0.55-1.30); GLUCOSE 171 mg/dL (70-99); POTASSIUM 3.3 mmol/L (3.5-5.1); SODIUM SERUM 148 mmol/L (136-145); TOTAL BILIRUBIN 0.4 mg/dL (0.0-1.0); TOTAL PROTEIN, SERUM 4.9 g/dL (6.4-8.3); UREA NITROGEN, BLOOD 35 mg/dL (8-21)
[2017-06-05 06:49] LABS: BASOPHILS % (AUTO) 0.2 % (0.0-2.0); EOSINOPHILS # (AUTO) 0.3 K/uL (0.0-0.4); EOSINOPHILS % (AUTO) 6.3 % (0.0-4.0); HEMATOCRIT 31.4 % (36-54); HEMOGLOBIN 10.4 g/dL (14.0-18.0); LYMPHOCYTES # (AUTO) 0.5 K/uL (1.0-5.5); LYMPHOCYTES % (AUTO) 9.2 % (20.5-51.5); MEAN CORPUSCULAR HEMOGLOBIN 29 pg (27-31); MEAN CORPUSCULAR HGB CONC 33 % (32-36); MEAN CORPUSCULAR VOLUME 88 fL (79.0-98.0); MONOCYTES # (AUTO) 0.3 K/uL (0.0-1.0); NEUTROPHILS # (AUTO) 4.1 K/uL (1.8-7.7); NEUTROPHILS % (AUTO) 79.3 % (40.0-70.0); PLATELET COUNT (AUTO) 134 K/uL (130-430); RED BLOOD CELL COUNT(AUTO) 3.57 MIL/uL (4.2-6.2); RED CELL DISTRIBUTION WIDTH 14.5 % (9.0-15.0); WHITE BLOOD COUNT (AUTO) 5.2 K/uL (4.8-10.8)
[2017-06-05 07:00] LABS: CHLORIDE 120 mmol/L (98-107)
[2017-06-05 08:46] LABS: PHOSPHORUS 2.5 mg/dL (2.7-4.5)
[2017-06-05] MEDS: PANTOPRAZOLE SODIUM 40 MG/VIAL (PROTONIX) IVP SCH (09:20)
[2017-06-05] MEDS ORDERED: *LOVENOX 1MG/KG Q12H/PHARMACY XX ONE (10:00)
[2017-06-05] MEDS: ENOXAPARIN SODIUM 60 MG/0.6 ML SYRINGE SUBCUT SCH (11:55)
[2017-06-05] MEDS ORDERED: DEXTROSE 50%-WATER 50 ML DISP.SYRIN IVP PRN ×2 (16:30)
[2017-06-05] MEDS ORDERED: GLUCOSE 15 GM GEL (in 37.5 GM TUBE) PO PRN ×2 (16:30)
[2017-06-05] MEDS: FAT EMULSIONS 250 ML IV SCH (17:43)
[2017-06-05] MEDS ORDERED: TPN CENTRAL IV SCH ×10 (18:00)
[2017-06-05] MEDS ORDERED: [UNRECOGNIZED DRUG - OTHER] IV SCH ×10 (18:00)
[2017-06-05] MEDS ORDERED: POTASSIUM ACETATE IV SCH ×10 (18:00)
[2017-06-05] MEDS ORDERED: K PHOS IV SCH ×10 (18:00)
[2017-06-05] MEDS ORDERED: SODIUM ACETATE IV SCH ×10 (18:00)
[2017-06-05] MEDS: IPRATROPIUM BROM 0.5 MG/2.5 ML VIAL.NEB (ATROVENT) INH PRN ×2 (20:16→23:41)
[2017-06-06] MEDS: PIPERACILLIN/TAZO 3.375/DEX-IS 50 ML IV SCH ×5 (00:02→23:30)
[2017-06-06] MEDS: ENOXAPARIN SODIUM 60 MG/0.6 ML SYRINGE SUBCUT SCH ×3 (00:04→23:31)
[2017-06-06] MEDS: D5NS 1,000 ML IV SCH (00:06)
[2017-06-06] MEDS: IPRATROPIUM BROM 0.5 MG/2.5 ML VIAL.NEB (ATROVENT) INH PRN ×2 (02:59→22:54)
[2017-06-06] MEDS: ALBUTEROL SULFATE 0.083% 2.5 MG/3 ML VIAL.NEB INH SCH ×6 (02:59→22:54)
[2017-06-06] MEDS: KETOROLAC TROMETHAMINE 30 MG VIAL IVP SCH ×4 (03:05→23:21)
[2017-06-06 04:12] VITALS: BP_SYST 150
[2017-06-06 06:35] LABS: EOSINOPHILS # (AUTO) 0.4 K/uL (0.0-0.4); EOSINOPHILS % (AUTO) 5.9 % (0.0-4.0); HEMATOCRIT 32.5 % (36-54); HEMOGLOBIN 10.7 g/dL (14.0-18.0); LYMPHOCYTES # (AUTO) 0.6 K/uL (1.0-5.5); LYMPHOCYTES % (AUTO) 9.4 % (20.5-51.5); MEAN CORPUSCULAR HEMOGLOBIN 29 pg (27-31); MEAN CORPUSCULAR HGB CONC 33 % (32-36); MEAN CORPUSCULAR VOLUME 89 fL (79.0-98.0); MONOCYTES # (AUTO) 0.3 K/uL (0.0-1.0); MONOCYTES % (AUTO) 4.8 % (1.7-9.3); NEUTROPHILS # (AUTO) 5.3 K/uL (1.8-7.7); NEUTROPHILS % (AUTO) 79.9 % (40.0-70.0); PLATELET COUNT (AUTO) 136 K/uL (130-430); RED BLOOD CELL COUNT(AUTO) 3.66 MIL/uL (4.2-6.2); RED CELL DISTRIBUTION WIDTH 14.1 % (9.0-15.0); WHITE BLOOD COUNT (AUTO) 6.6 K/uL (4.8-10.8)
[2017-06-06 06:57] LABS: ALANINE AMINOTRANSFERASE 30 U/L (12-78); ALBUMIN 1.5 g/dL (3.4-4.8); ANION GAP 7 (5-15); ASPARTATE AMINOTRANSFERASE 23 U/L (10-37); CALCIUM 7.5 mg/dL (8.4-11.0); CREATININE 1.19 mg/dL (0.55-1.30); GLUCOSE 159 mg/dL (70-99); PHOSPHORUS 2.3 mg/dL (2.7-4.5); SODIUM SERUM 149 mmol/L (136-145); TOTAL BILIRUBIN 0.5 mg/dL (0.0-1.0); TOTAL PROTEIN, SERUM 5.1 g/dL (6.4-8.3); UREA NITROGEN, BLOOD 26 mg/dL (8-21)
[2017-06-06 07:20] LABS: CHLORIDE 120 mmol/L (98-107)
[2017-06-06 08:18] VITALS: BP_SYST 164
[2017-06-06] MEDS: PANTOPRAZOLE SODIUM 40 MG/VIAL (PROTONIX) IVP SCH (09:02)
[2017-06-06] MEDS: VANCOMYCIN HCL 750 MG in NS 250 ML IV SCH (09:02)
[2017-06-06] MEDS: D5/0.45 NS 1,000 ML IV SCH ×2 (09:07→23:18)
[2017-06-06] MEDS ORDERED: POTASSIUM CHLORIDE 40 MEQ in NS 250 ML IV ONE (09:30)
[2017-06-06] MEDS ORDERED: ENALAPRILAT DIHYDRATE 1.25 MG/ML VIAL IVP PRN (09:30)
[2017-06-06 12:22] VITALS: BP_SYST 130
[2017-06-06] MEDS ORDERED: ALBUMIN HUMAN 25% 50 ML IV ONE (15:45)
[2017-06-06 16:39] VITALS: BP_SYST 150
[2017-06-06] MEDS: FAT EMULSIONS 250 ML IV SCH (18:09)
[2017-06-06] MEDS: SODIUM ACETATE IV SCH ×10 (18:11)
[2017-06-06] MEDS: K PHOS IV SCH ×10 (18:11)
[2017-06-06] MEDS: POTASSIUM ACETATE IV SCH ×10 (18:11)
[2017-06-06] MEDS: TPN CENTRAL IV SCH ×10 (18:11)
[2017-06-06] MEDS: [UNRECOGNIZED DRUG - OTHER] IV SCH ×10 (18:11)
[2017-06-06 19:00] VITALS: BP_SYST 148
[2017-06-06 20:00] VITALS: BP_SYST 148
[2017-06-07 00:43] VITALS: BP_SYST 163
[2017-06-07] MEDS: ALBUTEROL SULFATE 0.083% 2.5 MG/3 ML VIAL.NEB INH SCH ×6 (03:45→23:44)
[2017-06-07] MEDS: IPRATROPIUM BROM 0.5 MG/2.5 ML VIAL.NEB (ATROVENT) INH PRN ×2 (03:45→19:19)
[2017-06-07 04:05] VITALS: BP_SYST 145; BP_SYST 157
[2017-06-07] MEDS: PIPERACILLIN/TAZO 3.375/DEX-IS 50 ML IV SCH ×4 (05:47→23:55)
[2017-06-07] MEDS: KETOROLAC TROMETHAMINE 30 MG VIAL IVP SCH ×3 (05:47→15:15)
[2017-06-07] MEDS: D5/0.45 NS 1,000 ML IV SCH (05:58)
[2017-06-07 06:43] LABS: BASOPHILS % (AUTO) 0.3 % (0.0-2.0); EOSINOPHILS # (AUTO) 0.5 K/uL (0.0-0.4); EOSINOPHILS % (AUTO) 5.3 % (0.0-4.0); HEMATOCRIT 32.6 % (36-54); HEMOGLOBIN 10.7 g/dL (14.0-18.0); LYMPHOCYTES # (AUTO) 0.8 K/uL (1.0-5.5); LYMPHOCYTES % (AUTO) 9.1 % (20.5-51.5); MEAN CORPUSCULAR HEMOGLOBIN 29 pg (27-31); MEAN CORPUSCULAR HGB CONC 33 % (32-36); MEAN CORPUSCULAR VOLUME 88 fL (79.0-98.0); MONOCYTES # (AUTO) 0.2 K/uL (0.0-1.0); MONOCYTES % (AUTO) 1.9 % (1.7-9.3); NEUTROPHILS # (AUTO) 7.4 K/uL (1.8-7.7); NEUTROPHILS % (AUTO) 83.4 % (40.0-70.0); PLATELET COUNT (AUTO) 132 K/uL (130-430); RED BLOOD CELL COUNT(AUTO) 3.72 MIL/uL (4.2-6.2); RED CELL DISTRIBUTION WIDTH 14.3 % (9.0-15.0); WHITE BLOOD COUNT (AUTO) 8.9 K/uL (4.8-10.8)
[2017-06-07 06:47] LABS: ALANINE AMINOTRANSFERASE 35 U/L (12-78); ALBUMIN 1.8 g/dL (3.4-4.8); ANION GAP 5 (5-15); ASPARTATE AMINOTRANSFERASE 27 U/L (10-37); CALCIUM 7.8 mg/dL (8.4-11.0); CHLORIDE 115 mmol/L (98-107); CREATININE 1.12 mg/dL (0.55-1.30); GLUCOSE 110 mg/dL (70-99); POTASSIUM 3.6 mmol/L (3.5-5.1); SODIUM SERUM 144 mmol/L (136-145); TOTAL BILIRUBIN 0.7 mg/dL (0.0-1.0); TOTAL PROTEIN, SERUM 5.4 g/dL (6.4-8.3); UREA NITROGEN, BLOOD 22 mg/dL (8-21)
[2017-06-07 08:00] VITALS: BP_SYST 140
[2017-06-07] MEDS: PANTOPRAZOLE SODIUM 40 MG/VIAL (PROTONIX) IVP SCH (09:10)
[2017-06-07] MEDS: PROPRANOLOL HCL 10 MG TABLET (INDERAL) PO SCH (10:05)
[2017-06-07] MEDS: ASPIRIN 81 MG TABLET(ECOTRIN) PO SCH (10:06)
[2017-06-07] MEDS: DILTIAZEM HCL 120 MG CAP.SR.24H PO SCH (10:06)
[2017-06-07 12:37] VITALS: BP_SYST 147
[2017-06-07] MEDS: ENOXAPARIN SODIUM 60 MG/0.6 ML SYRINGE SUBCUT SCH ×2 (13:03→23:54)
[2017-06-07] MEDS: [UNRECOGNIZED DRUG - OTHER] OP SCH ×2 (15:00→21:00)
[2017-06-07] MEDS: SODIUM CHLORIDE 5% OP SCH ×2 (15:00→21:00)
[2017-06-07] MEDS: PILOCARPINE 1% OPHTHALMIC DROPS (ISOPTO CARPINE) OP SCH ×2 (15:15→21:22)
[2017-06-07 16:42] VITALS: BP_SYST 135
[2017-06-07] MEDS: FAT EMULSIONS 250 ML IV SCH (18:18)
[2017-06-07] MEDS: [UNRECOGNIZED DRUG - OTHER] IV SCH ×10 (18:29)
[2017-06-07] MEDS: K PHOS IV SCH ×10 (18:29)
[2017-06-07] MEDS: SODIUM ACETATE IV SCH ×10 (18:29)
[2017-06-07] MEDS: TPN CENTRAL IV SCH ×10 (18:29)
[2017-06-07] MEDS: POTASSIUM ACETATE IV SCH ×10 (18:29)
[2017-06-07 19:59] VITALS: BP_SYST 157
[2017-06-07] MEDS ORDERED: BIMATOPROST 0.01%, 2.5 ML EYE DROPS OP SCH (21:00)
[2017-06-07] MEDS: ATORVASTATIN 20 MG TABLET PO SCH (21:21)
[2017-06-07] MEDS: DORZOLAMIDE HCL/TIMOLOL MAL. 10 ML EYE DROPS (COSOPT) OP SCH (21:22)
[2017-06-07] MEDS: LATANOPROST 2.5 ML DROPS (XALATAN) OP SCH (21:22)
[2017-06-08] VITALS (7 sets, daily range): BP systolic 128–152
[2017-06-08] MEDS: D5/0.45 NS 1,000 ML IV SCH ×2 (03:05→19:36)
[2017-06-08] MEDS: ALBUTEROL SULFATE 0.083% 2.5 MG/3 ML VIAL.NEB INH SCH ×6 (03:56→23:00)
[2017-06-08] MEDS: PIPERACILLIN/TAZO 3.375/DEX-IS 50 ML IV SCH ×3 (05:52→17:41)
[2017-06-08 08:54] LABS: VANCOMYCIN,TROUGH 4.6 ug/mL (5.0-10.0)
[2017-06-08 08:55] LABS: ALANINE AMINOTRANSFERASE 50 U/L (12-78); ALBUMIN 1.7 g/dL (3.4-4.8); ANION GAP 9 (5-15); ASPARTATE AMINOTRANSFERASE 39 U/L (10-37); CALCIUM 7.7 mg/dL (8.4-11.0); CHLORIDE 108 mmol/L (98-107); CREATININE 1.06 mg/dL (0.55-1.30); GLUCOSE 144 mg/dL (70-99); PHOSPHORUS 2.9 mg/dL (2.7-4.5); POTASSIUM 3.6 mmol/L (3.5-5.1); SODIUM SERUM 139 mmol/L (136-145); TOTAL BILIRUBIN 0.6 mg/dL (0.0-1.0); TOTAL PROTEIN, SERUM 5.9 g/dL (6.4-8.3); UREA NITROGEN, BLOOD 19 mg/dL (8-21)
[2017-06-08 09:06] LABS: BASOPHILS % (AUTO) 0.2 % (0.0-2.0); EOSINOPHILS # (AUTO) 0.6 K/uL (0.0-0.4); HEMATOCRIT 32.9 % (36-54); HEMOGLOBIN 10.9 g/dL (14.0-18.0); LYMPHOCYTES # (AUTO) 0.8 K/uL (1.0-5.5); LYMPHOCYTES % (AUTO) 5.6 % (20.5-51.5); MEAN CORPUSCULAR HEMOGLOBIN 29 pg (27-31); MEAN CORPUSCULAR HGB CONC 33 % (32-36); MEAN CORPUSCULAR VOLUME 88 fL (79.0-98.0); MONOCYTES # (AUTO) 0.2 K/uL (0.0-1.0); MONOCYTES % (AUTO) 1.5 % (1.7-9.3); NEUTROPHILS # (AUTO) 12.2 K/uL (1.8-7.7); NEUTROPHILS % (AUTO) 88.7 % (40.0-70.0); PLATELET COUNT (AUTO) 152 K/uL (130-430); RED BLOOD CELL COUNT(AUTO) 3.75 MIL/uL (4.2-6.2); RED CELL DISTRIBUTION WIDTH 13.8 % (9.0-15.0); WHITE BLOOD COUNT (AUTO) 13.8 K/uL (4.8-10.8)
[2017-06-08] MEDS: VANCOMYCIN HCL 750 MG in NS 250 ML IV SCH (09:21)
[2017-06-08] MEDS: ASPIRIN 81 MG TABLET(ECOTRIN) PO SCH (09:21)
[2017-06-08] MEDS: PROPRANOLOL HCL 10 MG TABLET (INDERAL) PO SCH (09:21)
[2017-06-08] MEDS: PILOCARPINE 1% OPHTHALMIC DROPS (ISOPTO CARPINE) OP SCH ×3 (09:22→21:02)
[2017-06-08] MEDS: DILTIAZEM HCL 120 MG CAP.SR.24H PO SCH (09:22)
[2017-06-08] MEDS: PANTOPRAZOLE SODIUM 40 MG/VIAL (PROTONIX) IVP SCH (09:22)
[2017-06-08] MEDS: [UNRECOGNIZED DRUG - OTHER] OP SCH ×3 (09:23→21:01)
[2017-06-08] MEDS: DORZOLAMIDE HCL/TIMOLOL MAL. 10 ML EYE DROPS (COSOPT) OP SCH ×2 (09:23→21:03)
[2017-06-08] MEDS: SODIUM CHLORIDE 5% OP SCH ×3 (09:23→21:01)
[2017-06-08] MEDS: ENOXAPARIN SODIUM 60 MG/0.6 ML SYRINGE SUBCUT SCH (11:17)
[2017-06-08] MEDS ORDERED: LOPERAMIDE HCL 2 MG CAPSULE PO ONE (14:45)
[2017-06-08] MEDS: FAT EMULSIONS 250 ML IV SCH (17:45)
[2017-06-08] MEDS: SODIUM ACETATE IV SCH ×10 (17:46)
[2017-06-08] MEDS: POTASSIUM ACETATE IV SCH ×10 (17:46)
[2017-06-08] MEDS: TPN CENTRAL IV SCH ×10 (17:46)
[2017-06-08] MEDS: K PHOS IV SCH ×10 (17:46)
[2017-06-08] MEDS: [UNRECOGNIZED DRUG - OTHER] IV SCH ×10 (17:46)
[2017-06-08] MEDS: ATORVASTATIN 20 MG TABLET PO SCH (21:00)
[2017-06-08] MEDS: LATANOPROST 2.5 ML DROPS (XALATAN) OP SCH (21:01)
[2017-06-09] MEDS: PIPERACILLIN/TAZO 3.375/DEX-IS 50 ML IV SCH ×4 (00:37→18:03)
[2017-06-09] MEDS: INSULIN REGULAR, HUMAN 100 UNITS/ML, 10 ML VIAL (novoLIN R) SUBCUT PRN ×2 (00:41→05:58)
[2017-06-09] MEDS: ENOXAPARIN SODIUM 60 MG/0.6 ML SYRINGE SUBCUT SCH ×2 (00:41→12:17)
[2017-06-09 00:44] VITALS: BP_SYST 139
[2017-06-09] MEDS: ALBUTEROL SULFATE 0.083% 2.5 MG/3 ML VIAL.NEB INH SCH ×6 (03:11→23:03)
[2017-06-09 03:48] VITALS: BP_SYST 139
[2017-06-09 06:59] LABS: ANION GAP 6 (5-15); CALCIUM 7.4 mg/dL (8.4-11.0); CHLORIDE 107 mmol/L (98-107); CREATININE 1.07 mg/dL (0.55-1.30); GLUCOSE 138 mg/dL (70-99); PHOSPHORUS 2.7 mg/dL (2.7-4.5); POTASSIUM 3.5 mmol/L (3.5-5.1); SODIUM SERUM 138 mmol/L (136-145); TRIGLYCERIDES 61 mg/dL (30-150); UREA NITROGEN, BLOOD 17 mg/dL (8-21)
[2017-06-09 07:02] LABS: BASOPHILS % (AUTO) 0.2 % (0.0-2.0); EOSINOPHILS # (AUTO) 0.5 K/uL (0.0-0.4); EOSINOPHILS % (AUTO) 3.8 % (0.0-4.0); HEMATOCRIT 28.2 % (36-54); HEMOGLOBIN 9.4 g/dL (14.0-18.0); LYMPHOCYTES # (AUTO) 0.6 K/uL (1.0-5.5); MEAN CORPUSCULAR HEMOGLOBIN 29 pg (27-31); MEAN CORPUSCULAR HGB CONC 33 % (32-36); MEAN CORPUSCULAR VOLUME 88 fL (79.0-98.0); MONOCYTES # (AUTO) 0.4 K/uL (0.0-1.0); MONOCYTES % (AUTO) 3.1 % (1.7-9.3); NEUTROPHILS # (AUTO) 10.7 K/uL (1.8-7.7); NEUTROPHILS % (AUTO) 87.9 % (40.0-70.0); PLATELET COUNT (AUTO) 130 K/uL (130-430); RED BLOOD CELL COUNT(AUTO) 3.22 MIL/uL (4.2-6.2); WHITE BLOOD COUNT (AUTO) 12.2 K/uL (4.8-10.8)
[2017-06-09 08:07] VITALS: BP_SYST 126
[2017-06-09] MEDS: PANTOPRAZOLE SODIUM 40 MG/VIAL (PROTONIX) IVP SCH (08:38)
[2017-06-09] MEDS: PILOCARPINE 1% OPHTHALMIC DROPS (ISOPTO CARPINE) OP SCH ×3 (08:38→22:08)
[2017-06-09] MEDS: VANCOMYCIN HCL 750 MG in NS 250 ML IV SCH (08:38)
[2017-06-09] MEDS: DILTIAZEM HCL 120 MG CAP.SR.24H PO SCH (08:40)
[2017-06-09] MEDS: ASPIRIN 81 MG TABLET(ECOTRIN) PO SCH (08:40)
[2017-06-09] MEDS: PROPRANOLOL HCL 10 MG TABLET (INDERAL) PO SCH (08:40)
[2017-06-09] MEDS: DORZOLAMIDE HCL/TIMOLOL MAL. 10 ML EYE DROPS (COSOPT) OP SCH ×2 (08:41→22:08)
[2017-06-09] MEDS ORDERED: COMMUNICATION ORDER XX ONE (09:45)
[2017-06-09 12:00] VITALS: BP_SYST 145
[2017-06-09] MEDS: D5/0.45 NS 1,000 ML IV SCH (12:18)
[2017-06-09 16:18] VITALS: BP_SYST 126
[2017-06-09] MEDS ORDERED: LOPERAMIDE HCL 2 MG CAPSULE PO ONE (17:00)
[2017-06-09] MEDS: [UNRECOGNIZED DRUG - OTHER] IV SCH ×10 (18:05)
[2017-06-09] MEDS: K PHOS IV SCH ×10 (18:05)
[2017-06-09] MEDS: SODIUM ACETATE IV SCH ×10 (18:05)
[2017-06-09] MEDS: TPN CENTRAL IV SCH ×10 (18:05)
[2017-06-09] MEDS: POTASSIUM ACETATE IV SCH ×10 (18:05)
[2017-06-09] MEDS: FAT EMULSIONS 250 ML IV SCH (18:06)
[2017-06-09 19:54] VITALS: BP_SYST 132
[2017-06-09] MEDS: MURO OP SCH (22:07)
[2017-06-09] MEDS: ATORVASTATIN 20 MG TABLET PO SCH (22:07)
[2017-06-09] MEDS: LATANOPROST 2.5 ML DROPS (XALATAN) OP SCH (22:08)
[2017-06-10] MEDS: ENOXAPARIN SODIUM 60 MG/0.6 ML SYRINGE SUBCUT SCH ×3 (00:29→23:55)
[2017-06-10] MEDS: PIPERACILLIN/TAZO 3.375/DEX-IS 50 ML IV SCH ×5 (00:29→23:56)
[2017-06-10 01:39] VITALS: BP_SYST 128
[2017-06-10] MEDS: ALBUTEROL SULFATE 0.083% 2.5 MG/3 ML VIAL.NEB INH SCH ×6 (02:05→23:05)
[2017-06-10 04:00] VITALS: BP_SYST 129
[2017-06-10] MEDS: D5/0.45 NS 1,000 ML IV SCH ×2 (05:00→23:55)
[2017-06-10 06:41] LABS: BASOPHILS % (AUTO) 0.1 % (0.0-2.0); EOSINOPHILS # (AUTO) 0.5 K/uL (0.0-0.4); EOSINOPHILS % (AUTO) 5.7 % (0.0-4.0); HEMOGLOBIN 8.4 g/dL (14.0-18.0); LYMPHOCYTES # (AUTO) 0.6 K/uL (1.0-5.5); LYMPHOCYTES % (AUTO) 6.9 % (20.5-51.5); MEAN CORPUSCULAR HEMOGLOBIN 29 pg (27-31); MEAN CORPUSCULAR HGB CONC 33 % (32-36); MEAN CORPUSCULAR VOLUME 88 fL (79.0-98.0); MONOCYTES # (AUTO) 0.5 K/uL (0.0-1.0); MONOCYTES % (AUTO) 5.3 % (1.7-9.3); NEUTROPHILS # (AUTO) 7.5 K/uL (1.8-7.7); PLATELET COUNT (AUTO) 155 K/uL (130-430); RED BLOOD CELL COUNT(AUTO) 2.85 MIL/uL (4.2-6.2); RED CELL DISTRIBUTION WIDTH 14.3 % (9.0-15.0)
[2017-06-10 06:48] LABS: ANION GAP 6 (5-15); CALCIUM 7.6 mg/dL (8.4-11.0); CHLORIDE 106 mmol/L (98-107); CREATININE 1.15 mg/dL (0.55-1.30); GLUCOSE 126 mg/dL (70-99); PHOSPHORUS 3.6 mg/dL (2.7-4.5); POTASSIUM 3.8 mmol/L (3.5-5.1); SODIUM SERUM 137 mmol/L (136-145); UREA NITROGEN, BLOOD 22 mg/dL (8-21)
[2017-06-10 07:10] LABS: WHITE BLOOD COUNT (AUTO) 9.1 K/uL (4.8-10.8)
[2017-06-10 08:00] VITALS: BP_SYST 123
[2017-06-10] MEDS: ASPIRIN 81 MG TABLET(ECOTRIN) PO SCH (09:52)
[2017-06-10] MEDS: VANCOMYCIN HCL 750 MG in NS 250 ML IV SCH (09:52)
[2017-06-10] MEDS: PANTOPRAZOLE SODIUM 40 MG/VIAL (PROTONIX) IVP SCH (09:53)
[2017-06-10] MEDS: PROPRANOLOL HCL 10 MG TABLET (INDERAL) PO SCH (09:53)
[2017-06-10] MEDS: DILTIAZEM HCL 120 MG CAP.SR.24H PO SCH (09:54)
[2017-06-10] MEDS: DORZOLAMIDE HCL/TIMOLOL MAL. 10 ML EYE DROPS (COSOPT) OP SCH ×2 (10:04→22:14)
[2017-06-10] MEDS: MURO OP SCH ×2 (10:04→22:15)
[2017-06-10] MEDS: PILOCARPINE 1% OPHTHALMIC DROPS (ISOPTO CARPINE) OP SCH ×3 (10:05→22:14)
[2017-06-10] MEDS ORDERED: FERROUS SULFATE 325 MG TABLET.DR PO ONE (10:15)
[2017-06-10 12:04] VITALS: BP_SYST 128
[2017-06-10 16:36] VITALS: BP_SYST 112
[2017-06-10] MEDS: FAT EMULSIONS 250 ML IV SCH (17:38)
[2017-06-10] MEDS: POTASSIUM ACETATE IV SCH ×10 (17:40)
[2017-06-10] MEDS: SODIUM ACETATE IV SCH ×10 (17:40)
[2017-06-10] MEDS: [UNRECOGNIZED DRUG - OTHER] IV SCH ×10 (17:40)
[2017-06-10] MEDS: K PHOS IV SCH ×10 (17:40)
[2017-06-10] MEDS: TPN CENTRAL IV SCH ×10 (17:40)
[2017-06-10 20:00] VITALS: BP_SYST 119
[2017-06-10] MEDS: ATORVASTATIN 20 MG TABLET PO SCH (22:13)
[2017-06-10] MEDS: FERROUS SULFATE 325 MG TABLET.DR PO SCH (22:13)
[2017-06-10] MEDS: LATANOPROST 2.5 ML DROPS (XALATAN) OP SCH (22:15)
[2017-06-11 00:06] VITALS: BP_SYST 116
[2017-06-11] MEDS: ALBUTEROL SULFATE 0.083% 2.5 MG/3 ML VIAL.NEB INH SCH ×5 (03:00→23:00)
[2017-06-11] MEDS: D5/0.45 NS 1,000 ML IV SCH ×2 (03:24→17:46)
[2017-06-11 04:15] VITALS: BP_SYST 127
[2017-06-11] MEDS: PIPERACILLIN/TAZO 3.375/DEX-IS 50 ML IV SCH ×3 (05:07→17:46)
[2017-06-11 06:50] LABS: BASOPHILS % (AUTO) 0.6 % (0.0-2.0); EOSINOPHILS # (AUTO) 0.4 K/uL (0.0-0.4); EOSINOPHILS % (AUTO) 5.1 % (0.0-4.0); HEMATOCRIT 24.1 % (36-54); HEMOGLOBIN 7.9 g/dL (14.0-18.0); LYMPHOCYTES # (AUTO) 0.7 K/uL (1.0-5.5); MEAN CORPUSCULAR HEMOGLOBIN 29 pg (27-31); MEAN CORPUSCULAR HGB CONC 33 % (32-36); MEAN CORPUSCULAR VOLUME 88 fL (79.0-98.0); MONOCYTES # (AUTO) 0.6 K/uL (0.0-1.0); MONOCYTES % (AUTO) 7.7 % (1.7-9.3); NEUTROPHILS # (AUTO) 5.9 K/uL (1.8-7.7); NEUTROPHILS % (AUTO) 77.6 % (40.0-70.0); PLATELET COUNT (AUTO) 181 K/uL (130-430); RED BLOOD CELL COUNT(AUTO) 2.74 MIL/uL (4.2-6.2); RED CELL DISTRIBUTION WIDTH 14.5 % (9.0-15.0); WHITE BLOOD COUNT (AUTO) 7.6 K/uL (4.8-10.8)
[2017-06-11 07:17] LABS: ANION GAP 6 (5-15); CALCIUM 7.5 mg/dL (8.4-11.0); CHLORIDE 106 mmol/L (98-107); GLUCOSE 130 mg/dL (70-99); POTASSIUM 3.9 mmol/L (3.5-5.1); SODIUM SERUM 137 mmol/L (136-145); UREA NITROGEN, BLOOD 20 mg/dL (8-21)
[2017-06-11 07:18] LABS: CREATININE 1.27 mg/dL (0.55-1.30); PHOSPHORUS 3.6 mg/dL (2.7-4.5)
[2017-06-11] MEDS: PANTOPRAZOLE SODIUM 40 MG/VIAL (PROTONIX) IVP SCH (08:37)
[2017-06-11] MEDS: VANCOMYCIN HCL 750 MG in NS 250 ML IV SCH (08:37)
[2017-06-11] MEDS: ASPIRIN 81 MG TABLET(ECOTRIN) PO SCH (08:38)
[2017-06-11] MEDS: FERROUS SULFATE 325 MG TABLET.DR PO SCH ×2 (08:38→20:25)
[2017-06-11] MEDS: PROPRANOLOL HCL 10 MG TABLET (INDERAL) PO SCH (08:39)
[2017-06-11] MEDS: DILTIAZEM HCL 120 MG CAP.SR.24H PO SCH (08:40)
[2017-06-11] MEDS: DORZOLAMIDE HCL/TIMOLOL MAL. 10 ML EYE DROPS (COSOPT) OP SCH ×2 (08:41→20:22)
[2017-06-11] MEDS: MURO OP SCH ×2 (08:41→20:24)
[2017-06-11] MEDS: PILOCARPINE 1% OPHTHALMIC DROPS (ISOPTO CARPINE) OP SCH ×3 (08:41→20:23)
[2017-06-11] MEDS: ENOXAPARIN SODIUM 60 MG/0.6 ML SYRINGE SUBCUT SCH (12:04)
[2017-06-11 14:14] VITALS: BP_SYST 129
[2017-06-11 15:18] LABS: HEMATOCRIT 23.4 % (36-54); HEMOGLOBIN 7.7 g/dL (14.0-18.0)
[2017-06-11 17:09] VITALS: BP_SYST 129
[2017-06-11] MEDS: FAT EMULSIONS 250 ML IV SCH (17:42)
[2017-06-11] MEDS: K PHOS IV SCH ×10 (17:43)
[2017-06-11] MEDS: TPN CENTRAL IV SCH ×10 (17:43)
[2017-06-11] MEDS: SODIUM ACETATE IV SCH ×10 (17:43)
[2017-06-11] MEDS: [UNRECOGNIZED DRUG - OTHER] IV SCH ×10 (17:43)
[2017-06-11] MEDS: POTASSIUM ACETATE IV SCH ×10 (17:43)
[2017-06-11 19:00] VITALS: BP_SYST 140
[2017-06-11] MEDS: IPRATROPIUM BROM 0.5 MG/2.5 ML VIAL.NEB (ATROVENT) INH PRN (19:59)
[2017-06-11 20:00] VITALS: BP_SYST 140
[2017-06-11] MEDS: LATANOPROST 2.5 ML DROPS (XALATAN) OP SCH (20:25)
[2017-06-11] MEDS: ATORVASTATIN 20 MG TABLET PO SCH (20:26)
[2017-06-12] MEDS: PIPERACILLIN/TAZO 3.375/DEX-IS 50 ML IV SCH ×4 (00:19→18:00)
[2017-06-12] MEDS: ENOXAPARIN SODIUM 60 MG/0.6 ML SYRINGE SUBCUT SCH ×2 (00:20→12:29)
[2017-06-12 01:18] VITALS: BP_SYST 132
[2017-06-12 06:05] VITALS: BP_SYST 130
[2017-06-12 07:23] LABS: BASOPHILS % (AUTO) 0.3 % (0.0-2.0); EOSINOPHILS # (AUTO) 0.4 K/uL (0.0-0.4); EOSINOPHILS % (AUTO) 4.8 % (0.0-4.0); HEMOGLOBIN 7.1 g/dL (14.0-18.0); LYMPHOCYTES # (AUTO) 0.8 K/uL (1.0-5.5); LYMPHOCYTES % (AUTO) 8.8 % (20.5-51.5); MEAN CORPUSCULAR HEMOGLOBIN 29 pg (27-31); MEAN CORPUSCULAR HGB CONC 33 % (32-36); MEAN CORPUSCULAR VOLUME 89 fL (79.0-98.0); MONOCYTES # (AUTO) 0.6 K/uL (0.0-1.0); MONOCYTES % (AUTO) 7.1 % (1.7-9.3); NEUTROPHILS # (AUTO) 6.9 K/uL (1.8-7.7); PLATELET COUNT (AUTO) 208 K/uL (130-430); RED BLOOD CELL COUNT(AUTO) 2.42 MIL/uL (4.2-6.2); RED CELL DISTRIBUTION WIDTH 14.9 % (9.0-15.0); WHITE BLOOD COUNT (AUTO) 8.8 K/uL (4.8-10.8)
[2017-06-12 07:29] LABS: ALANINE AMINOTRANSFERASE 82 U/L (12-78); ALBUMIN 1.4 g/dL (3.4-4.8); ANION GAP 6 (5-15); ASPARTATE AMINOTRANSFERASE 45 U/L (10-37); CALCIUM 7.5 mg/dL (8.4-11.0); CHLORIDE 105 mmol/L (98-107); CREATININE 1.27 mg/dL (0.55-1.30); GLUCOSE 128 mg/dL (70-99); PHOSPHORUS 3.7 mg/dL (2.7-4.5); POTASSIUM 4.2 mmol/L (3.5-5.1); SODIUM SERUM 136 mmol/L (136-145); TOTAL BILIRUBIN 0.3 mg/dL (0.0-1.0); TOTAL PROTEIN, SERUM 5.7 g/dL (6.4-8.3); UREA NITROGEN, BLOOD 18 mg/dL (8-21)
[2017-06-12 07:30] LABS: HEMATOCRIT 21.4 % (36-54)
[2017-06-12] MEDS: ALBUTEROL SULFATE 0.083% 2.5 MG/3 ML VIAL.NEB INH SCH ×5 (07:39→23:00)
[2017-06-12] MEDS: PANTOPRAZOLE SODIUM 40 MG/VIAL (PROTONIX) IVP SCH (10:10)
[2017-06-12] MEDS: VANCOMYCIN HCL 750 MG in NS 250 ML IV SCH (10:10)
[2017-06-12] MEDS: PROPRANOLOL HCL 10 MG TABLET (INDERAL) PO SCH (10:11)
[2017-06-12] MEDS: ASPIRIN 81 MG TABLET(ECOTRIN) PO SCH (10:12)
[2017-06-12] MEDS: MURO OP SCH ×2 (10:12→20:11)
[2017-06-12] MEDS: DILTIAZEM HCL 120 MG CAP.SR.24H PO SCH (10:12)
[2017-06-12] MEDS: FERROUS SULFATE 325 MG TABLET.DR PO SCH ×2 (10:12→20:11)
[2017-06-12] MEDS: PILOCARPINE 1% OPHTHALMIC DROPS (ISOPTO CARPINE) OP SCH ×3 (10:13→20:11)
[2017-06-12] MEDS: DORZOLAMIDE HCL/TIMOLOL MAL. 10 ML EYE DROPS (COSOPT) OP SCH ×2 (10:13→20:11)
[2017-06-12 11:58] VITALS: BP_SYST 134
[2017-06-12] MEDS: D5/0.45 NS 1,000 ML IV SCH ×2 (12:26→21:50)
[2017-06-12] MEDS: IPRATROPIUM BROM 0.5 MG/2.5 ML VIAL.NEB (ATROVENT) INH PRN (15:44)
[2017-06-12 16:10] VITALS: BP_SYST 126
[2017-06-12] MEDS: FAT EMULSIONS 250 ML IV SCH (18:25)
[2017-06-12] MEDS: SODIUM ACETATE IV SCH ×10 (18:26)
[2017-06-12] MEDS: POTASSIUM ACETATE IV SCH ×10 (18:26)
[2017-06-12] MEDS: K PHOS IV SCH ×10 (18:26)
[2017-06-12] MEDS: TPN CENTRAL IV SCH ×10 (18:26)
[2017-06-12] MEDS: [UNRECOGNIZED DRUG - OTHER] IV SCH ×10 (18:26)
[2017-06-12] MEDS: LATANOPROST 2.5 ML DROPS (XALATAN) OP SCH (20:11)
[2017-06-12] MEDS: ATORVASTATIN 20 MG TABLET PO SCH (20:11)
[2017-06-12 22:45] VITALS: BP_SYST 140
[2017-06-12 23:46] VITALS: BP_SYST 113
[2017-06-13] VITALS (7 sets, daily range): BP systolic 113–160
[2017-06-13] MEDS: ENOXAPARIN SODIUM 60 MG/0.6 ML SYRINGE SUBCUT SCH ×3 (00:01→23:43)
[2017-06-13] MEDS: ALBUTEROL SULFATE 0.083% 2.5 MG/3 ML VIAL.NEB INH SCH ×5 (03:00→20:02)
[2017-06-13 07:32] LABS: BASOPHILS % (AUTO) 0.5 % (0.0-2.0); EOSINOPHILS # (AUTO) 0.6 K/uL (0.0-0.4); EOSINOPHILS % (AUTO) 6.5 % (0.0-4.0); HEMATOCRIT 29.5 % (36-54); HEMOGLOBIN 9.7 g/dL (14.0-18.0); LYMPHOCYTES # (AUTO) 0.8 K/uL (1.0-5.5); LYMPHOCYTES % (AUTO) 9.3 % (20.5-51.5); MEAN CORPUSCULAR HEMOGLOBIN 29 pg (27-31); MEAN CORPUSCULAR HGB CONC 33 % (32-36); MEAN CORPUSCULAR VOLUME 89 fL (79.0-98.0); MONOCYTES # (AUTO) 0.7 K/uL (0.0-1.0); MONOCYTES % (AUTO) 7.5 % (1.7-9.3); NEUTROPHILS # (AUTO) 6.8 K/uL (1.8-7.7); NEUTROPHILS % (AUTO) 76.2 % (40.0-70.0); PLATELET COUNT (AUTO) 237 K/uL (130-430); RED BLOOD CELL COUNT(AUTO) 3.31 MIL/uL (4.2-6.2); RED CELL DISTRIBUTION WIDTH 14.7 % (9.0-15.0); WHITE BLOOD COUNT (AUTO) 8.9 K/uL (4.8-10.8)
[2017-06-13 07:47] LABS: ANION GAP 6 (5-15); CALCIUM 7.7 mg/dL (8.4-11.0); CHLORIDE 105 mmol/L (98-107); CREATININE 1.23 mg/dL (0.55-1.30); GLUCOSE 123 mg/dL (70-99); POTASSIUM 4.5 mmol/L (3.5-5.1); SODIUM SERUM 135 mmol/L (136-145); UREA NITROGEN, BLOOD 19 mg/dL (8-21); VANCOMYCIN,TROUGH 13.4 ug/mL (5.0-10.0)
[2017-06-13] MEDS: DORZOLAMIDE HCL/TIMOLOL MAL. 10 ML EYE DROPS (COSOPT) OP SCH ×2 (09:48→23:40)
[2017-06-13] MEDS: MURO OP SCH ×2 (09:48→23:41)
[2017-06-13] MEDS: PANTOPRAZOLE SODIUM 40 MG/VIAL (PROTONIX) IVP SCH (09:50)
[2017-06-13] MEDS: VANCOMYCIN HCL 750 MG in NS 250 ML IV SCH (09:51)
[2017-06-13] MEDS: PILOCARPINE 1% OPHTHALMIC DROPS (ISOPTO CARPINE) OP SCH ×3 (09:51→23:40)
[2017-06-13] MEDS: PROPRANOLOL HCL 10 MG TABLET (INDERAL) PO SCH (09:52)
[2017-06-13] MEDS: FERROUS SULFATE 325 MG TABLET.DR PO SCH ×2 (09:52→23:42)
[2017-06-13] MEDS: ASPIRIN 81 MG TABLET(ECOTRIN) PO SCH (09:53)
[2017-06-13] MEDS: DILTIAZEM HCL 120 MG CAP.SR.24H PO SCH (09:53)
[2017-06-13] MEDS: D5/0.45 NS 1,000 ML IV SCH (15:08)
[2017-06-13] MEDS ORDERED: TPN CENTRAL IV SCH ×10 (18:00)
[2017-06-13] MEDS ORDERED: K PHOS IV SCH ×10 (18:00)
[2017-06-13] MEDS ORDERED: POTASSIUM ACETATE IV SCH ×10 (18:00)
[2017-06-13] MEDS ORDERED: [UNRECOGNIZED DRUG - OTHER] IV SCH ×10 (18:00)
[2017-06-13] MEDS ORDERED: SODIUM ACETATE IV SCH ×10 (18:00)
[2017-06-13] MEDS: FAT EMULSIONS 250 ML IV SCH (18:29)
[2017-06-13] MEDS: IPRATROPIUM BROM 0.5 MG/2.5 ML VIAL.NEB (ATROVENT) INH PRN (20:02)
[2017-06-13] MEDS: LATANOPROST 2.5 ML DROPS (XALATAN) OP SCH (23:41)
[2017-06-13] MEDS: ATORVASTATIN 20 MG TABLET PO SCH (23:42)
[2017-06-14] MEDS: D5/0.45 NS 1,000 ML IV SCH ×3 (02:53→21:17)
[2017-06-14 04:34] VITALS: BP_SYST 111
[2017-06-14] MEDS: ALBUTEROL SULFATE 0.083% 2.5 MG/3 ML VIAL.NEB INH SCH ×3 (07:00→20:22)
[2017-06-14 07:06] LABS: BASOPHILS % (AUTO) 0.3 % (0.0-2.0); EOSINOPHILS # (AUTO) 0.6 K/uL (0.0-0.4); EOSINOPHILS % (AUTO) 6.4 % (0.0-4.0); HEMATOCRIT 23.9 % (36-54); HEMOGLOBIN 7.9 g/dL (14.0-18.0); LYMPHOCYTES # (AUTO) 1.2 K/uL (1.0-5.5); MEAN CORPUSCULAR HEMOGLOBIN 29 pg (27-31); MEAN CORPUSCULAR HGB CONC 33 % (32-36); MEAN CORPUSCULAR VOLUME 88 fL (79.0-98.0); MONOCYTES # (AUTO) 0.7 K/uL (0.0-1.0); MONOCYTES % (AUTO) 7.8 % (1.7-9.3); NEUTROPHILS # (AUTO) 6.8 K/uL (1.8-7.7); NEUTROPHILS % (AUTO) 72.5 % (40.0-70.0); PLATELET COUNT (AUTO) 246 K/uL (130-430); RED BLOOD CELL COUNT(AUTO) 2.71 MIL/uL (4.2-6.2); RED CELL DISTRIBUTION WIDTH 15.2 % (9.0-15.0); WHITE BLOOD COUNT (AUTO) 9.3 K/uL (4.8-10.8)
[2017-06-14 07:25] LABS: ALANINE AMINOTRANSFERASE 57 U/L (12-78); ALBUMIN 1.4 g/dL (3.4-4.8); ANION GAP 4 (5-15); ASPARTATE AMINOTRANSFERASE 30 U/L (10-37); CALCIUM 7.6 mg/dL (8.4-11.0); CHLORIDE 106 mmol/L (98-107); CREATININE 1.11 mg/dL (0.55-1.30); GLUCOSE 117 mg/dL (70-99); POTASSIUM 4.8 mmol/L (3.5-5.1); SODIUM SERUM 134 mmol/L (136-145); TOTAL BILIRUBIN 0.3 mg/dL (0.0-1.0); TOTAL PROTEIN, SERUM 5.6 g/dL (6.4-8.3); UREA NITROGEN, BLOOD 22 mg/dL (8-21)
[2017-06-14 08:00] VITALS: BP_SYST 144
[2017-06-14] MEDS: PROPRANOLOL HCL 10 MG TABLET (INDERAL) PO SCH (09:38)
[2017-06-14] MEDS: ASPIRIN 81 MG TABLET(ECOTRIN) PO SCH (09:38)
[2017-06-14] MEDS: MURO OP SCH ×2 (09:39→21:18)
[2017-06-14] MEDS: FERROUS SULFATE 325 MG TABLET.DR PO SCH ×2 (09:39→21:17)
[2017-06-14] MEDS: DILTIAZEM HCL 120 MG CAP.SR.24H PO SCH (09:39)
[2017-06-14] MEDS: PANTOPRAZOLE SODIUM 40 MG/VIAL (PROTONIX) IVP SCH (09:39)
[2017-06-14] MEDS: DORZOLAMIDE HCL/TIMOLOL MAL. 10 ML EYE DROPS (COSOPT) OP SCH ×2 (09:39→21:19)
[2017-06-14] MEDS: PILOCARPINE 1% OPHTHALMIC DROPS (ISOPTO CARPINE) OP SCH ×3 (09:40→21:19)
[2017-06-14] MEDS: VANCOMYCIN HCL 750 MG in NS 250 ML IV SCH (09:53)
[2017-06-14] MEDS ORDERED: COMMUNICATION ORDER XX ONE (10:45)
[2017-06-14] MEDS: ENOXAPARIN SODIUM 60 MG/0.6 ML SYRINGE SUBCUT SCH (12:11)
[2017-06-14 12:39] VITALS: BP_SYST 136
[2017-06-14 16:45] VITALS: BP_SYST 134
[2017-06-14 17:08] VITALS: BP_SYST 134
[2017-06-14 19:40] VITALS: BP_SYST 125
[2017-06-14] MEDS: LATANOPROST 2.5 ML DROPS (XALATAN) OP SCH (21:17)
[2017-06-14] MEDS: ATORVASTATIN 20 MG TABLET PO SCH (21:17)
[2017-06-15] MEDS: ENOXAPARIN SODIUM 60 MG/0.6 ML SYRINGE SUBCUT SCH (00:10)
[2017-06-15 00:17] VITALS: BP_SYST 126
[2017-06-15 03:34] VITALS: BP_SYST 122
[2017-06-15 08:09] LABS: BASOPHILS % (AUTO) 0.2 % (0.0-2.0); EOSINOPHILS # (AUTO) 0.6 K/uL (0.0-0.4); EOSINOPHILS % (AUTO) 4.6 % (0.0-4.0); HEMATOCRIT 23.3 % (36-54); HEMOGLOBIN 7.9 g/dL (14.0-18.0); LYMPHOCYTES # (AUTO) 1.4 K/uL (1.0-5.5); LYMPHOCYTES % (AUTO) 10.9 % (20.5-51.5); MEAN CORPUSCULAR HEMOGLOBIN 30 pg (27-31); MEAN CORPUSCULAR HGB CONC 34 % (32-36); MEAN CORPUSCULAR VOLUME 89 fL (79.0-98.0); MONOCYTES # (AUTO) 1.1 K/uL (0.0-1.0); MONOCYTES % (AUTO) 8.4 % (1.7-9.3); NEUTROPHILS # (AUTO) 9.7 K/uL (1.8-7.7); NEUTROPHILS % (AUTO) 75.9 % (40.0-70.0); PLATELET COUNT (AUTO) 292 K/uL (130-430); RED BLOOD CELL COUNT(AUTO) 2.62 MIL/uL (4.2-6.2); RED CELL DISTRIBUTION WIDTH 15.4 % (9.0-15.0); WHITE BLOOD COUNT (AUTO) 12.8 K/uL (4.8-10.8)
[2017-06-15 09:10] LABS: ANION GAP 6 (5-15); CALCIUM 7.9 mg/dL (8.4-11.0); CHLORIDE 107 mmol/L (98-107); CREATININE 1.27 mg/dL (0.55-1.30); GLUCOSE 91 mg/dL (70-99); POTASSIUM 4.8 mmol/L (3.5-5.1); SODIUM SERUM 134 mmol/L (136-145); UREA NITROGEN, BLOOD 23 mg/dL (8-21)
[2017-06-15] MEDS: FERROUS SULFATE 325 MG TABLET.DR PO SCH ×2 (09:47→21:46)
[2017-06-15] MEDS: PROPRANOLOL HCL 10 MG TABLET (INDERAL) PO SCH (09:47)
[2017-06-15] MEDS: DILTIAZEM HCL 120 MG CAP.SR.24H PO SCH (09:48)
[2017-06-15] MEDS: PANTOPRAZOLE SODIUM 40 MG/VIAL (PROTONIX) IVP SCH (09:48)
[2017-06-15] MEDS: ASPIRIN 81 MG TABLET(ECOTRIN) PO SCH (09:48)
[2017-06-15] MEDS: DORZOLAMIDE HCL/TIMOLOL MAL. 10 ML EYE DROPS (COSOPT) OP SCH ×2 (09:49→21:47)
[2017-06-15] MEDS: MURO OP SCH ×2 (09:49→21:48)
[2017-06-15] MEDS: VANCOMYCIN HCL 750 MG in NS 250 ML IV SCH (09:49)
[2017-06-15] MEDS: PILOCARPINE 1% OPHTHALMIC DROPS (ISOPTO CARPINE) OP SCH ×3 (09:49→22:55)
[2017-06-15 09:57] VITALS: BP_SYST 124
[2017-06-15 12:30] VITALS: BP_SYST 154
[2017-06-15] MEDS: ALBUTEROL SULFATE 0.083% 2.5 MG/3 ML VIAL.NEB INH SCH ×2 (13:08→20:09)
[2017-06-15 16:30] VITALS: BP_SYST 122
[2017-06-15] MEDS: D5/0.45 NS 1,000 ML IV SCH (16:37)
[2017-06-15 19:40] VITALS: BP_SYST 107
[2017-06-15] MEDS: ATORVASTATIN 20 MG TABLET PO SCH (21:46)
[2017-06-15] MEDS: LATANOPROST 2.5 ML DROPS (XALATAN) OP SCH (21:47)
[2017-06-16 01:30] VITALS: BP_SYST 114
[2017-06-16] MEDS: D5/0.45 NS 1,000 ML IV SCH (06:40)
[2017-06-16 06:44] LABS: ANION GAP 6 (5-15); CALCIUM 7.5 mg/dL (8.4-11.0); CHLORIDE 109 mmol/L (98-107); CREATININE 1.21 mg/dL (0.55-1.30); GLUCOSE 89 mg/dL (70-99); POTASSIUM 4.5 mmol/L (3.5-5.1); SODIUM SERUM 137 mmol/L (136-145); UREA NITROGEN, BLOOD 23 mg/dL (8-21)
[2017-06-16 06:47] LABS: BASOPHILS % (AUTO) 0.4 % (0.0-2.0); EOSINOPHILS # (AUTO) 0.9 K/uL (0.0-0.4); EOSINOPHILS % (AUTO) 9.6 % (0.0-4.0); LYMPHOCYTES # (AUTO) 1.3 K/uL (1.0-5.5); LYMPHOCYTES % (AUTO) 14.4 % (20.5-51.5); MEAN CORPUSCULAR HEMOGLOBIN 30 pg (27-31); MEAN CORPUSCULAR HGB CONC 33 % (32-36); MEAN CORPUSCULAR VOLUME 91 fL (79.0-98.0); MONOCYTES # (AUTO) 0.7 K/uL (0.0-1.0); MONOCYTES % (AUTO) 7.8 % (1.7-9.3); NEUTROPHILS # (AUTO) 6.1 K/uL (1.8-7.7); NEUTROPHILS % (AUTO) 67.8 % (40.0-70.0); PLATELET COUNT (AUTO) 254 K/uL (130-430); RED BLOOD CELL COUNT(AUTO) 2.12 MIL/uL (4.2-6.2); RED CELL DISTRIBUTION WIDTH 15.9 % (9.0-15.0)
[2017-06-16] MEDS: ALBUTEROL SULFATE 0.083% 2.5 MG/3 ML VIAL.NEB INH SCH ×2 (07:00→19:46)
[2017-06-16 07:19] LABS: HEMOGLOBIN 6.4 g/dL (14.0-18.0)
[2017-06-16 07:20] LABS: HEMATOCRIT 19.2 % (36-54)
[2017-06-16 08:24] VITALS: BP_SYST 117
[2017-06-16] MEDS: MURO OP SCH ×2 (09:00→09:43)
[2017-06-16] MEDS: PANTOPRAZOLE SODIUM 40 MG/VIAL (PROTONIX) IVP SCH (09:42)
[2017-06-16] MEDS: DORZOLAMIDE HCL/TIMOLOL MAL. 10 ML EYE DROPS (COSOPT) OP SCH ×2 (09:43→22:35)
[2017-06-16] MEDS: PILOCARPINE 1% OPHTHALMIC DROPS (ISOPTO CARPINE) OP SCH ×2 (09:43→14:22)
[2017-06-16] MEDS: DILTIAZEM HCL 120 MG CAP.SR.24H PO SCH (09:43)
[2017-06-16] MEDS: PROPRANOLOL HCL 10 MG TABLET (INDERAL) PO SCH (09:44)
[2017-06-16] MEDS: ASPIRIN 81 MG TABLET(ECOTRIN) PO SCH (09:44)
[2017-06-16] MEDS: FERROUS SULFATE 325 MG TABLET.DR PO SCH ×2 (09:44→22:35)
[2017-06-16 12:20] VITALS: BP_SYST 119
[2017-06-16 16:00] VITALS: BP_SYST 130
[2017-06-16 19:40] VITALS: BP_SYST 110
[2017-06-16] MEDS: ATORVASTATIN 20 MG TABLET PO SCH (22:34)
[2017-06-16] MEDS: LATANOPROST 2.5 ML DROPS (XALATAN) OP SCH (22:36)
[2017-06-17] VITALS: BP_SYST 131
[2017-06-17 03:58] VITALS: BP_SYST 129
[2017-06-17 06:21] LABS: BASOPHILS # (AUTO) 0.1 K/uL (0.0-0.2); BASOPHILS % (AUTO) 0.7 % (0.0-2.0); EOSINOPHILS # (AUTO) 0.8 K/uL (0.0-0.4); EOSINOPHILS % (AUTO) 10.3 % (0.0-4.0); HEMATOCRIT 25.1 % (36-54); HEMOGLOBIN 8.4 g/dL (14.0-18.0); LYMPHOCYTES # (AUTO) 1.1 K/uL (1.0-5.5); LYMPHOCYTES % (AUTO) 14.2 % (20.5-51.5); MEAN CORPUSCULAR HEMOGLOBIN 30 pg (27-31); MEAN CORPUSCULAR HGB CONC 34 % (32-36); MEAN CORPUSCULAR VOLUME 89 fL (79.0-98.0); MONOCYTES # (AUTO) 0.6 K/uL (0.0-1.0); MONOCYTES % (AUTO) 7.6 % (1.7-9.3); NEUTROPHILS # (AUTO) 5.3 K/uL (1.8-7.7); NEUTROPHILS % (AUTO) 67.2 % (40.0-70.0); PLATELET COUNT (AUTO) 258 K/uL (130-430); RED BLOOD CELL COUNT(AUTO) 2.83 MIL/uL (4.2-6.2); RED CELL DISTRIBUTION WIDTH 16.9 % (9.0-15.0); WHITE BLOOD COUNT (AUTO) 7.9 K/uL (4.8-10.8)
[2017-06-17 06:29] LABS: ANION GAP 5 (5-15); CALCIUM 7.6 mg/dL (8.4-11.0); CHLORIDE 109 mmol/L (98-107); CREATININE 1.21 mg/dL (0.55-1.30); GLUCOSE 91 mg/dL (70-99); POTASSIUM 4.4 mmol/L (3.5-5.1); SODIUM SERUM 137 mmol/L (136-145); UREA NITROGEN, BLOOD 22 mg/dL (8-21)
[2017-06-17] MEDS: ALBUTEROL SULFATE 0.083% 2.5 MG/3 ML VIAL.NEB INH SCH ×2 (07:00→19:57)
[2017-06-17 08:00] VITALS: BP_SYST 122
[2017-06-17] MEDS: MURO OP SCH ×2 (09:00→23:04)
[2017-06-17] MEDS: PILOCARPINE 1% OPHTHALMIC DROPS (ISOPTO CARPINE) OP SCH ×3 (09:00→23:04)
[2017-06-17] MEDS: FERROUS SULFATE 325 MG TABLET.DR PO SCH ×2 (10:51→23:02)
[2017-06-17] MEDS: PROPRANOLOL HCL 10 MG TABLET (INDERAL) PO SCH (10:51)
[2017-06-17] MEDS: ASPIRIN 81 MG TABLET(ECOTRIN) PO SCH (10:52)
[2017-06-17] MEDS: PANTOPRAZOLE SODIUM 40 MG/VIAL (PROTONIX) IVP SCH (10:53)
[2017-06-17] MEDS: DILTIAZEM HCL 120 MG CAP.SR.24H PO SCH (10:53)
[2017-06-17] MEDS: DORZOLAMIDE HCL/TIMOLOL MAL. 10 ML EYE DROPS (COSOPT) OP SCH ×2 (10:56→21:00)
[2017-06-17 12:00] VITALS: BP_SYST 136
[2017-06-17] MEDS: D5/0.45 NS 1,000 ML IV SCH (15:17)
[2017-06-17 17:00] VITALS: BP_SYST 130
[2017-06-17] MEDS ORDERED: BISACODYL 5 MG TABLET.DR (DULCOLAX) PO ONE (17:00)
[2017-06-17] MEDS ORDERED: GOLYTELY / COLYTE SOLUTION 4 LITERS PO ONE (18:00)
[2017-06-17 20:00] VITALS: BP_SYST 119
[2017-06-17] MEDS: ATORVASTATIN 20 MG TABLET PO SCH (23:02)
[2017-06-17] MEDS: LATANOPROST 2.5 ML DROPS (XALATAN) OP SCH (23:03)
[2017-06-18 00:05] VITALS: BP_SYST 119
[2017-06-18 03:38] VITALS: BP_SYST 122
[2017-06-18 06:48] LABS: BASOPHILS # (AUTO) 0.1 K/uL (0.0-0.2); BASOPHILS % (AUTO) 0.8 % (0.0-2.0); EOSINOPHILS # (AUTO) 0.8 K/uL (0.0-0.4); HEMATOCRIT 25.7 % (36-54); HEMOGLOBIN 8.6 g/dL (14.0-18.0); LYMPHOCYTES # (AUTO) 1.2 K/uL (1.0-5.5); LYMPHOCYTES % (AUTO) 15.2 % (20.5-51.5); MEAN CORPUSCULAR HEMOGLOBIN 30 pg (27-31); MEAN CORPUSCULAR HGB CONC 34 % (32-36); MEAN CORPUSCULAR VOLUME 88 fL (79.0-98.0); MONOCYTES # (AUTO) 0.5 K/uL (0.0-1.0); MONOCYTES % (AUTO) 7.2 % (1.7-9.3); NEUTROPHILS % (AUTO) 66.8 % (40.0-70.0); PLATELET COUNT (AUTO) 279 K/uL (130-430); RED BLOOD CELL COUNT(AUTO) 2.92 MIL/uL (4.2-6.2); RED CELL DISTRIBUTION WIDTH 16.1 % (9.0-15.0); WHITE BLOOD COUNT (AUTO) 7.6 K/uL (4.8-10.8)
[2017-06-18] MEDS: D5/0.45 NS 1,000 ML IV SCH ×2 (06:53→22:52)
[2017-06-18 07:00] LABS: ANION GAP 7 (5-15); CALCIUM 7.7 mg/dL (8.4-11.0); CHLORIDE 109 mmol/L (98-107); CREATININE 1.06 mg/dL (0.55-1.30); GLUCOSE 84 mg/dL (70-99); POTASSIUM 3.9 mmol/L (3.5-5.1); SODIUM SERUM 139 mmol/L (136-145); UREA NITROGEN, BLOOD 18 mg/dL (8-21)
[2017-06-18] MEDS: ALBUTEROL SULFATE 0.083% 2.5 MG/3 ML VIAL.NEB INH SCH ×2 (07:00→23:14)
[2017-06-18 07:43] LABS: INR 0.9 (0.80-1.20); PROTHROMBIN TIME 10.3 SECS (9.5-12.5)
[2017-06-18] MEDS: ASPIRIN 81 MG TABLET(ECOTRIN) PO SCH (09:00)
[2017-06-18] MEDS: DILTIAZEM HCL 120 MG CAP.SR.24H PO SCH (09:00)
[2017-06-18] MEDS: PROPRANOLOL HCL 10 MG TABLET (INDERAL) PO SCH (09:00)
[2017-06-18] MEDS: FERROUS SULFATE 325 MG TABLET.DR PO SCH ×2 (09:00→21:22)
[2017-06-18] MEDS: PILOCARPINE 1% OPHTHALMIC DROPS (ISOPTO CARPINE) OP SCH ×3 (09:36→21:11)
[2017-06-18] MEDS: MURO OP SCH ×2 (09:37→21:13)
[2017-06-18] MEDS: DORZOLAMIDE HCL/TIMOLOL MAL. 10 ML EYE DROPS (COSOPT) OP SCH ×2 (09:37→21:12)
[2017-06-18] MEDS: PANTOPRAZOLE SODIUM 40 MG/VIAL (PROTONIX) IVP SCH (09:41)
[2017-06-18] MEDS ORDERED: MEPERIDINE HCL/PF 100 MG/ML AMP ONE (10:36)
[2017-06-18] MEDS ORDERED: SIMETHICONE 40 MG/0.6 ML ML ONE (10:37)
[2017-06-18] MEDS: MIDAZOLAM HCL 5 MG/5 ML VIAL ONE ×3 (10:56→11:00)
[2017-06-18] MEDS: fentaNYL CITRATE/PF 100 MCG/2 ML AMP ONE ×3 (10:56→11:00)
[2017-06-18 12:00] VITALS: BP_SYST 106
[2017-06-18 17:17] VITALS: BP_SYST 125
[2017-06-18 20:10] VITALS: BP_SYST 130
[2017-06-18] MEDS: LATANOPROST 2.5 ML DROPS (XALATAN) OP SCH (21:11)
[2017-06-18] MEDS: ATORVASTATIN 20 MG TABLET PO SCH (21:22)
[2017-06-19 04:45] VITALS: BP_SYST 145
[2017-06-19 06:32] LABS: BASOPHILS # (AUTO) 0.1 K/uL (0.0-0.2); BASOPHILS % (AUTO) 0.7 % (0.0-2.0); EOSINOPHILS # (AUTO) 0.8 K/uL (0.0-0.4); EOSINOPHILS % (AUTO) 10.7 % (0.0-4.0); HEMATOCRIT 25.1 % (36-54); HEMOGLOBIN 8.3 g/dL (14.0-18.0); LYMPHOCYTES # (AUTO) 1.1 K/uL (1.0-5.5); LYMPHOCYTES % (AUTO) 14.6 % (20.5-51.5); MEAN CORPUSCULAR HEMOGLOBIN 29 pg (27-31); MEAN CORPUSCULAR HGB CONC 33 % (32-36); MEAN CORPUSCULAR VOLUME 89 fL (79.0-98.0); MONOCYTES # (AUTO) 0.5 K/uL (0.0-1.0); NEUTROPHILS # (AUTO) 4.8 K/uL (1.8-7.7); PLATELET COUNT (AUTO) 258 K/uL (130-430); RED BLOOD CELL COUNT(AUTO) 2.84 MIL/uL (4.2-6.2); RED CELL DISTRIBUTION WIDTH 16.1 % (9.0-15.0); WHITE BLOOD COUNT (AUTO) 7.3 K/uL (4.8-10.8)
[2017-06-19 06:51] LABS: ALANINE AMINOTRANSFERASE 55 U/L (12-78); ALBUMIN 1.6 g/dL (3.4-4.8); ANION GAP 5 (5-15); ASPARTATE AMINOTRANSFERASE 36 U/L (10-37); CALCIUM 7.6 mg/dL (8.4-11.0); CHLORIDE 110 mmol/L (98-107); CREATININE 1.15 mg/dL (0.55-1.30); GLUCOSE 86 mg/dL (70-99); POTASSIUM 4.2 mmol/L (3.5-5.1); SODIUM SERUM 139 mmol/L (136-145); TOTAL BILIRUBIN 0.5 mg/dL (0.0-1.0); TOTAL PROTEIN, SERUM 5.8 g/dL (6.4-8.3); UREA NITROGEN, BLOOD 18 mg/dL (8-21)
[2017-06-19 08:00] VITALS: BP_SYST 131
[2017-06-19] MEDS: ALBUTEROL SULFATE 0.083% 2.5 MG/3 ML VIAL.NEB INH SCH (08:12)
[2017-06-19] MEDS: MURO OP SCH ×2 (10:12→22:18)
[2017-06-19] MEDS: PANTOPRAZOLE SODIUM 40 MG/VIAL (PROTONIX) IVP SCH (10:12)
[2017-06-19] MEDS: FERROUS SULFATE 325 MG TABLET.DR PO SCH ×2 (10:17→22:11)
[2017-06-19] MEDS: DILTIAZEM HCL 120 MG CAP.SR.24H PO SCH (10:18)
[2017-06-19] MEDS: ASPIRIN 81 MG TABLET(ECOTRIN) PO SCH (10:19)
[2017-06-19] MEDS: PROPRANOLOL HCL 10 MG TABLET (INDERAL) PO SCH (10:19)
[2017-06-19] MEDS: DORZOLAMIDE HCL/TIMOLOL MAL. 10 ML EYE DROPS (COSOPT) OP SCH ×2 (10:20→22:14)
[2017-06-19] MEDS: PILOCARPINE 1% OPHTHALMIC DROPS (ISOPTO CARPINE) OP SCH ×3 (10:21→22:07)
[2017-06-19 13:00] VITALS: BP_SYST 147
[2017-06-19] MEDS: D5/0.45 NS 1,000 ML IV SCH ×2 (15:17→23:09)
[2017-06-19 16:36] VITALS: BP_SYST 139
[2017-06-19 21:00] VITALS: BP_SYST 125
[2017-06-19] MEDS: ATORVASTATIN 20 MG TABLET PO SCH (22:11)
[2017-06-19] MEDS: LATANOPROST 2.5 ML DROPS (XALATAN) OP SCH (23:08)
[2017-06-20] VITALS (7 sets, daily range): BP systolic 139–147
[2017-06-20 06:19] LABS: BASOPHILS % (AUTO) 0.6 % (0.0-2.0); EOSINOPHILS # (AUTO) 0.8 K/uL (0.0-0.4); EOSINOPHILS % (AUTO) 11.4 % (0.0-4.0); HEMOGLOBIN 8.4 g/dL (14.0-18.0); LYMPHOCYTES # (AUTO) 1.1 K/uL (1.0-5.5); MEAN CORPUSCULAR HEMOGLOBIN 30 pg (27-31); MEAN CORPUSCULAR HGB CONC 34 % (32-36); MEAN CORPUSCULAR VOLUME 89 fL (79.0-98.0); MONOCYTES # (AUTO) 0.5 K/uL (0.0-1.0); MONOCYTES % (AUTO) 7.2 % (1.7-9.3); NEUTROPHILS # (AUTO) 4.3 K/uL (1.8-7.7); NEUTROPHILS % (AUTO) 64.8 % (40.0-70.0); PLATELET COUNT (AUTO) 302 K/uL (130-430); RED BLOOD CELL COUNT(AUTO) 2.82 MIL/uL (4.2-6.2); RED CELL DISTRIBUTION WIDTH 16.1 % (9.0-15.0); WHITE BLOOD COUNT (AUTO) 6.7 K/uL (4.8-10.8)
[2017-06-20 06:45] LABS: ALANINE AMINOTRANSFERASE 48 U/L (12-78); ALBUMIN 1.7 g/dL (3.4-4.8); ANION GAP 4 (5-15); ASPARTATE AMINOTRANSFERASE 32 U/L (10-37); CALCIUM 7.6 mg/dL (8.4-11.0); CHLORIDE 110 mmol/L (98-107); CREATININE 1.13 mg/dL (0.55-1.30); GLUCOSE 93 mg/dL (70-99); POTASSIUM 3.9 mmol/L (3.5-5.1); SODIUM SERUM 138 mmol/L (136-145); TOTAL BILIRUBIN 0.4 mg/dL (0.0-1.0); TOTAL PROTEIN, SERUM 5.9 g/dL (6.4-8.3); UREA NITROGEN, BLOOD 21 mg/dL (8-21)
[2017-06-20] MEDS: FERROUS SULFATE 325 MG TABLET.DR PO SCH (08:49)
[2017-06-20] MEDS: ASPIRIN 81 MG TABLET(ECOTRIN) PO SCH (08:49)
[2017-06-20] MEDS: DILTIAZEM HCL 120 MG CAP.SR.24H PO SCH (08:49)
[2017-06-20] MEDS: PILOCARPINE 1% OPHTHALMIC DROPS (ISOPTO CARPINE) OP SCH (08:50)
[2017-06-20] MEDS: PANTOPRAZOLE SODIUM 40 MG/VIAL (PROTONIX) IVP SCH (08:50)
[2017-06-20] MEDS: DORZOLAMIDE HCL/TIMOLOL MAL. 10 ML EYE DROPS (COSOPT) OP SCH (08:51)
[2017-06-20] MEDS: MURO OP SCH (08:57)
[2017-06-20] MEDS ORDERED: PRO40 PO (10:49)
== END 2017-06-20 16:25 | disposition home or self-care (01) | DRG 329 ==
LOC: SED 18:07 → SIC 20:51 → STU 06-04 15:28 → SMU 06-09 10:28
PROVIDERS: ADMIT Internal Medicine; ATTEND Internal Medicine
PROC: 0DB80ZZ Excision of Small Intestine, Open Approach (ICD-10-PCS; 2017-06-02)
PROC: 0DTJ0ZZ Resection of Appendix, Open Approach (ICD-10-PCS; 2017-06-02)
PROC: 0DNS0ZZ (ICD-10-PCS; 2017-06-02)
PROC: 0DN80ZZ Release Small Intestine, Open Approach (ICD-10-PCS; 2017-06-02)
PROC: 0DNW0ZZ Release Peritoneum, Open Approach (ICD-10-PCS; 2017-06-02)
PROC: 0FT40ZZ Resection of Gallbladder, Open Approach (ICD-10-PCS; 2017-06-02)
PROC: 5A1945Z Respiratory Ventilation, 24-96 Consecutive Hours (ICD-10-PCS; 2017-06-02)
PROC: 0WJP0ZZ Inspection of Gastrointestinal Tract, Open Approach (ICD-10-PCS; principal; 2017-06-02 13:00)
PROC: 02HV33Z Insertion of Infusion Device into Superior Vena Cava, Percutaneous Approach (ICD-10-PCS; 2017-06-04)
PROC: B548ZZA Ultrasonography of Superior Vena Cava, Guidance (ICD-10-PCS; 2017-06-04)
PROC: 30233N1 Transfusion of Nonautologous Red Blood Cells into Peripheral Vein, Percutaneous Approach (ICD-10-PCS; 2017-06-12)
PROC: 0DBH8ZX Excision of Cecum, Via Natural or Artificial Opening Endoscopic, Diagnostic (ICD-10-PCS; 2017-06-18)
DX: K56.60 Unspecified intestinal obstruction (principal); J69.0 Pneumonitis due to inhalation of food and vomit; A41.9 Sepsis, unspecified organism; J80 Acute respiratory distress syndrome; K92.2 Gastrointestinal hemorrhage, unspecified; K63.2 Fistula of intestine; I25.10 Atherosclerotic heart disease of native coronary artery without angina pectoris; E78.5 Hyperlipidemia, unspecified; H40.9 Unspecified glaucoma; S60.222A Contusion of left hand, initial encounter; D64.9 Anemia, unspecified; D12.0 Benign neoplasm of cecum; N18.3 Chronic kidney disease, stage 3 (moderate); I12.9 Hypertensive chronic kidney disease with stage 1 through stage 4 chronic kidney disease, or unspecified chronic kidney disease; Z79.82 Long term (current) use of aspirin; Z79.899 Other long term (current) drug therapy; Z90.49 Acquired absence of other specified parts of digestive tract; Z95.5 Presence of coronary angioplasty implant and graft; Z88.6 Allergy status to analgesic agent; Z88.2 Allergy status to sulfonamides
CPT/HCPCS: 36415; 36600; 45380; 71010; 74000-TC; 74249; 74250-TC; 78278-TC; 80048; 80053; 80202-TC; 81000-TC; 82272; 82803-TC; 82962; 83605; 83690-TC; 83735-TC; 84100-TC; 84478-TC; 85007; 85018-TC; 85025; 85027; 85610-TC; 85730-TC; 86886; 86900; 86901; 86920; 87040-TC; 87070-TC; 87075-TC; 87081; 87086; 87186-TC; 88304; 88305; 88307; 93005; 94002; 94010; 94640; 94760; 96365; 96375; 97110-GP; 97116-GP; 97530-GP; 99285; A4409; A5061; A9560; C1751; C9113; J0610; J1200; J1650; J1885; J2175; J2250; J2270; J2405; J2543; J2704; J3010; J3370; J3475; J3480; J3490; J7030; J7040; J7042; J7050; J7060; J7120; P9021; P9046; Q9963